=== PATIENT | female | born 1980 | race Caucasian/White ===

== ENCOUNTER 2021-10-06 11:12 | Outpatient (CLI) | payer OTHER, SELFPAY ==
[2021-10-06 14:30] LABS: Fetal Fibronectin* Negative (Negative)
[2021-10-11 12:18] LABS: Rapid Plasma Reagin (RPR) Non Reactive (Non Reactive)
== END 2021-10-06 11:13 | disposition home or self-care (01) ==
PROVIDERS: Visit Provider Advanced Practice Midwife
DX: O09.212 Supervision of pregnancy with history of pre-term labor, second trimester (principal); Z3A.26 26 weeks gestation of pregnancy
CPT/HCPCS: 84112; 86592

== ENCOUNTER 2021-11-08 09:41 | Outpatient (CLI) | payer OTHER, SELFPAY ==
--- OUTSIDE RECORDS SUMMARY | 2021-11-08 09:44 | XMS_ITS | Encounter Summary ---
:1980 Author Organization [facility] Address [facility] [place] [address] Care Team Providers Name Role Phone Bebeto Vargas MD Primary Care Provider Unavailable Encounter Details Date Type Department Care Team Description 08/22/2021 Travel Social History Tobacco Use Types Packs/Day Years Used Date Never Smoker Alcohol Use Standard Drinks/Week Comments No 0 (1 standard drink = 0.6 oz pure alcoho l) Sex Assigned at Date Recorded Not on file COVID-19 Exposure Response Date Recorded In the last 10 days, have you been in contact with No / Unsu re 08/22/2021 8:00 AM CDT someone who was confirmed or suspected to have Coronavirus/COVID-19? documented as of this encounter Plan of Treatment Upcoming Encounters Date Type Specialty Care Team Description 12/06/2021 Appointment Radiology. Sadie France MD [address] [place], [place] [id number] (Wo rk) 12/06/2021 Office Visit Maternal and Medicine Sa thais France MD [address] [place], [place] [phone] (Wo rk) documented as of this encounter Visit Diagnoses Not on filedocumented in this encounter Care Teams Field Tax Auditor Relationship Specialty Start Date End Date Bebeto Vargas MD PCP - General 03/09/08 documented as of this encounter
--- OUTSIDE RECORDS SUMMARY | 2021-11-08 09:44 | XMS_ITS | Encounter Summary ---
:1980 Author Organization [facility] Address [address] [place] [address]. [place] [address] Care Team Providers Name Role Phone Bebeto Vargas MD Primary Care Provider Unavailable Encounter Details Date Type Department Care Team Description 10/09/[address] [facility] Scan, MATERNAL Health Info Mgmt Non-Provider MEDICINE CE NTER Srvcs PROVIDER SERVICE [address] [place] [address] [place] [address] [facility] [phone] [facility] Social History Tobacco Use Types Packs/Day Years Used Date Never Smoker Alcohol Use Standard Drinks/Week Comments No 0 (1 standard drink = 0.6 oz pure alcoho l) Sex Assigned at Date Recorded Not on file documented as of this encounter Plan of Treatment Upcoming Encounters Date Type Specialty Care Team Description 12/06/2021 Appointment Radiology. Sadie France MD [address] [place], [place] [address] (Wo rk) 12/06/2021 Office Visit Maternal and Medicine Sa thais France MD [address] [place], [place] [id number] (Wo rk) documented as of this encounter Visit Diagnoses Not on filedocumented in this encounter Care Teams Senior Analyst Developer Relationship Specialty Start Date End Date Bebeto Vargas MD PCP - General 03/09/08 documented as of this encounter
--- OUTSIDE RECORDS SUMMARY | 2021-11-08 09:44 | XMS_ITS | Clinical Summary ---
:1980 Author Organization [facility] Address [address] [place] [address] Care Team Providers Name Role Phone Bebeto Vargas MD Primary Care Provider Unavailable Allergies Active Allergy Reactions Severity Noted Date Comments Gluten Meal Other (See Comments) 11/10/2018 Causes bloating Lac Bovis Other (See Comments), Nausea and 11/11/19 19 Mouth sores Vomiting Medications Medication Sig Dispensed Refills Start Date End Date Status PENTASA 500 MG OR 2 tabs 4 times a 0 01/15/2008 Active CPCRIndications: day Crohns disease VITAMIN TABS ONE DAILY 3 MONTHS 1 01/15/2008 Active OR VITAMIN B-12 1000 MCG 0 01/15/2008 Active OR TABSIndications: Status post small bowel resection FOLIC ACID 1 MG OR ONE DAILY 3 MONTHS 1 01/15/2008 Active TABS ZANTAC 150 MG OR ONE TABLET TWICE 60 1 02/12/2008 Active TABSIndications: DAILY Heartburn Additional Information Patient not taking. Reported on 08/22/2021 syringe 22G X 1-1/2 3 ML MISC FOR USE WITH VITAMIN B12 0 01/18/2021 Active ONCE A WEEK montelukast (SINGULAIR) 10 MG Take 1 tablet by mouth At 0 05/06/2020 Active tablet Bedtime Active Problems Problem Noted Date CARDIOVASCULAR SCREENING; LDL GOAL LESS THAN 160 01/29 Other threatened labor, antepartum 02/25/2008 Crohns disease 01/15/2008 Status post small bowel resection 01/15/2008 High-risk 01/15/2008 Overview: (Problem list name updated by automated process. Provider to review and confirm.) Fourth degree perineal laceration 01/15/2008 Estimated Date of Delivery Comments Yes 01/12/2022 Based on last menstr ual period of 04/07/2021 Resolved Problems Problem Noted Date Resolved Date Encounter for supervision of other normal 01/15/20 08 01/15/2008 Overview: Diagnosis updated by automated process. Provider to review and confirm. Normal Routine History And Physical - 03/08/2014 Overview: Created by Conversion Encounters Date Type Specialty Care Team Description 11/03/2021 Office Visit Maternal and Non-Fv Crohn's disease with Medicine Credentialed complication, Provider, unspecified Radiology gastrointestinal tract Sadie France location (H ) (Primary MD Mimi Dx) 11/03/2021 Hospital Encounter Radiology. Non-Fv related Credentialed condition Provider, Radiology Sadie France MD 11/03/2021 Travel 10/13/2021 Transcribe Orders Maternal and Wanda Aldridge RN Pregn jesus related Medicine condition (Pr imary Dx) 10/09/2021 Medical Scan, Non-Provider MATERNAL Correspondence [facility] PROVIDER SERVIC E REQUEST- OUTPAT [facility] 08/22/2021 Office Visit Maternal and Iliana Perez, r elated condition, antepartum (Primary Dx); Medicine CNM Choroid plexus cyst of fetus affecting c are of mother, antepartum, not applicable or unspecified fetus; Magdalena Garcia MD Multigravida of advanced maternal age in second trimester 08/22/2021 Hospital Encounter Radiology. Abraham Elder iseastrav; MD Raymond Status post small bowel resection; Iliana Diaz High-risk pr egnancy in second trimester MD Radha Card Lisa, MD 08/22/2021 Travel 08/15/2021 PRE VISIT Maternal and Nazanin Moran, RN Ultrasoun d (L2- AMA, Medicine Crohn's, B12 deficiency, Cov id in ); Con sult (AMA, Crohn's, B12 deficiency, Cov id in ) from Last 3 Months Immunizations Name Administration Dates Next Due Flu, Unspecified 02/14/2008 HepA, Unspecified 06/29/2010, 05/13/2007 Influenza Vaccine IM > 6 months Valent IIV4 01/25/2014, 12/30 (Alfuria,Fluzone) Tdap (Adacel,Boostrix) 04/29/2013, 05/13/2007 Family History Medical History Relation Comments Asthma Brother 2 Asthma Brother 3 Diabetes Maternal Grandmother ? type 2 Hyperlipidemia Maternal Grandmother Hypertension Maternal Grandmother Lipids Maternal Grandmother Asthma Mother Alzheimer Disease Paternal Grandmother Arthritis Paternal Grandmother Asthma Sister 2 Asthma Sister 3 Relation Status Comments Brother 1 Alive 2 Brother 2 Brother 3 Brother 4 Alive Father Alive Maternal Grandfather Maternal Grandmother Alive Mother Alive Paternal Grandfather Paternal Grandmother Sister 1 Alive 1 Sister 2 Sister 3 Sister 4 Alive Son Alive Social History Tobacco Use Types Packs/Day Years Used Date Never Smoker Alcohol Use Standard Drinks/Week Comments No 0 (1 standard drink = 0.6 oz pure alcoho l) Estimated Date of Delivery Comments Yes 01/12/2022 Based on last menstr ual period of 04/07/2021 Sex Assigned at Date Recorded Not on file COVID-19 Exposure Response Date Recorded In the last 10 days, have you been in contact with No / Unsu re 11/03/2021 9:34 AM CDT someone who was confirmed or suspected to have Coronavirus/COVID-19? 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 Sadie France MD [address] [place] [address] (Wo rk) 12/06/2021 Office Visit Maternal and Medicine Sa thais France MD [address] [place] [address] (Wo rk) Health Maintenance Due Date Last Done Comments ADVANCE CARE PLANNING 1980 ANNUAL REVIEW OF HM ORDERS 1980 PREVENTIVE CARE VISIT 1980 PAP 01/25/2017 01/25/2014, 11/07/2012, 06/29/2010 PHQ-2 (once per calendar 04/01/2021 year) COVID-19 Vaccine (5 - 05/15/2021 01/12/2021, 04/19/2020, Booster) 03/29/2020, Additional history exists MATERNAL SCREENING 07/21/2021 OBGCT (OB) 09/22/2021 02/12/2008 REPEAT ANTIBODY SCREEN (OB) 10/20/2021 INFLUENZA VACCINE (#1) 2021 01/12/2021, 01/12/2021, 12/15/2019, Additional history exists DTAP/TDAP/TD IMMUNIZATION 04/29/2023 04/29/2013, 05/13/2007 , (8 - Td or Tdap) 09/22/1997, Additional history exists IPV IMMUNIZATION Completed 07/12/1987, 10/09/1983, 1982, Additional history exists HEPATITIS B IMMUNIZATION Completed 11/02/1998, 10/20/1997, 09/22/1997 HIV SCREENING Completed 11/07/2012 HEPATITIS C SCREENING Completed 12/16/2012, 11/07/2012 MENINGITIS IMMUNIZATION Aged Out No longe r eligible based on patient 's age to complete this topic Pneumococcal Vaccine: Aged Out No longer eligible Pediatrics (0 to 5 Years) based on patient's age and At-Risk Patients (6 to to co mplete this topic 64 Years) Procedures Procedure Name Priority Date/Time Associated Comments Diagnosis [facility] Routine 11/03/2021 9:59 AM rela onelia Results for this SINGLE F/U CDT condition procedure are i n the results section. [facility] Routine 08/22/2021 8:48 AM Crohns d isease Results for this SINGLE CDT Status post small procedure are in bowel resection the results High-risk section. in second trimester from Last 3 Months Results [facility] Comprehensive Single F/U (11/03/2021 9:59 AM CDT) Anatomical Region Laterality Modality Ultrasound Specimen (Source) Anatomical Collection Method Collection Time Re ceived Time Location / / Volume Laterality 11/03/2021 9:36 AM CDT Impressions 11/03/2021 10:41 AM CDT IMPRESSION 1) Alfonso intrauterine at 3 0 & 0/7 weeks gestational age. 2) None of the anomalies commonly detect ed by ultrasound were evident in the limited anatomic survey as described above, anatomy limited by gestational age and lie. 3) Growth parameters and estimated weight were consistent with established dates. 4) The amniotic fluid volume appeared no rmal. Narrative 11/03/2021 10:41 AM CDT Comp Follow Up Pat. Name: ARIANA GOMEZ Study Date: 11/03/2021 9:36am Pat. NO: [id number] Referring ??: ROBI PEREZ Site: [facility] Hose Inspector And Patcher: Monique Wilkerson RDMS : 1980 Age: 41 INDICATION Advanced Maternal Age. Crohn's Disease. B12 deficiency. METHOD Transabdominal ultrasound examination. V iew: Sufficient Alfonso . Number of fetuses: 1 DATING ? Date ?Details ?Gest. age ?RACHEL LMP ?04/07/2021 ? 30 w + 0 d ? 01/12/2022 Prior assessment ? 3/ 10/2021 ?GA: 8 w + 4 d ? 30 w + 0 d ? 01/12/2022 U/S ? 11/03/2021 ?based upon AC, BPD, Femur, HC ? 30 w + 3 d ? 01/09/2022 Assigned dating ?Dating performed on 08/22/2021, based on the LMP ?30 w + 0 d ? 01/12/2022 GENERAL EVALUATION Cardiac activity present. FHR 157 bpm. movements present. Presentation cephalic. Placenta Anterior, No Previa, > 2 cm fro m internal os. Umbilical cord 3 vessel cord. Amniotic fluid Amount of AF: normal. MVP 7.8 cm. BIOMETRY Main Biometry: BPD ?74.0 ?mm ? 29w 5d ?Hadlock OFD ?102.3 ?mm ? 30w 1d ? Nicolaides HC ?282.5 ?mm ?31w 0d ?Hadlock Cerebellum tr ?39.4 ? mm ?33w 3d ?Nicolaides AC ?263.9 ?mm ?30w 4d ?61% ?Hadlock Femur ?58.2 ? mm ?30w 3d ?Hadlock Weight Calculation: EFW ? 1,579 ?g ? 54% ?Hadlock EFW (lb,oz) ? 3 lb 8 ?oz EFW by ?Hadlock ([id number]) Head / Face / Neck Biometry: Sub Prior ? 7.0 ? mm CM ?6.5 ? mm ANATOMY The following structures appear normal: Head / Neck ? Cranium. Head size. Head shape. Lateral ventricles. Midline falx. Cavum septi pellucidi. Cerebellum. Cisterna magna. Thalami. Face ? Lips. Profile. Nose. Heart / Thorax ?4-chamber view. RVOT view. LVOT view. 2-mgvszm-yabwblj view. ? Diaphragm. Abdomen ? Stomach. Kidneys. Bladder. Spine ?Cervical spine. Thoracic spine. Lumbar spine. Sacral spine. Gender: female. MATERNAL STRUCTURES Cervix ?Visualized ? Appearance: Appears Closed ? Approach - Transabdominal: Cervical length 48.8 mm Right Ovary ?Not examined Left Ovary ?Not examined RECOMMENDATION Thank-you for referring your patient to assess growth. I discussed the findings on today's ultrasound with the patient. Follow-up is scheduled in 4-6 weeks to yazmin hatfieldss growth due maternal Crohn's disease. She is not currently taking any medication for her Crohn's disease. She will do this with our [facility] group given the closer location to her home. Return to primary provider for continued care. If you have questions regarding today's evaluation or if we can be of further service, please contact the [facility]. anomalies may be present but not detected Procedure Note Sadie France MD - 11/03/2021Fo rmatting of this note might be different from the original. Comp Follow Up Pat. Name:Munira GOMEZ Date:07/2021 9:36am Pat. NO: [id number] MD:ILIANA PEREZ [facility] [place] :1980Age:41 INDICATION Advanced Maternal Age. Crohn's Disease. B12 deficiency. METHOD Transabdominal ultrasound examination. V iew: Sufficient Alfonso . Number of fetuses: 1 DATING Date Details Gest. age RACHEL LMP 04/07/2021 30 w + 0 d 01/12/2022 Prior assessment 06/06/2021 GA: 8 w + 4 d 30 w + 0 d 01/12/2022 U/S 11/03/2021 based upon AC, BPD, Femur, HC 30 w + 3 d 01/09/2022 Assigned dating Dating performed on 07/31, based on the LMP 30 w + 0 d 01/12/2022 GENERAL EVALUATION Cardiac activity present. FHR 157 bpm. movements present. Presentation cephalic. Placenta Anterior, No Previa, > 2 cm fro m internal os. Umbilical cord 3 vessel cord. Amniotic fluid Amount of AF: normal. MVP 7.8 cm. BIOMETRY Main Biometry: BPD 74.0 mm 29w 5d Hadlock OFD 102.3 mm 30w 1d Nicolaides HC 282.5 mm 31w 0d Hadlock Cerebellum tr 39.4 mm 33w 3d Nicolaides AC 263.9 mm 30w 4d 61% Hadlock Femur 58.2 mm 30w 3d Hadlock Weight Calculation: EFW 1,579 g 54% Hadlock EFW (lb,oz) 3 lb 8 oz EFW by Hadlock ([id number]) Head / Face / Neck Biometry: Sub Prior 7.0 mm CM 6.5 mm ANATOMY The following structures appear normal: Head / Neck Cranium. Head size. Head sha pe. Lateral ventricles. Midline falx. Cavum septi pellucidi. Cerebellum. Cisterna magna. Thalami. Face Lips. Profile. Nose. Heart / Thorax 4-chamber view. RVOT view . LVOT view. 9-pngutm-gxmynzk view. Diaphragm. Abdomen Stomach. Kidneys. Bladder. Spine Cervical spine. Thoracic spine. Jyoti mbar spine. Sacral spine. Gender: female. MATERNAL STRUCTURES Cervix Visualized Appearance: Appears Closed Approach - Transabdominal: Cervical kevin gth 48.8 mm Right Ovary Not examined Left Ovary Not examined RECOMMENDATION Thank-you for referring your patient to assess growth. I discussed the findings on today's ultrasound with the patient. Follow-up is scheduled in 4-6 weeks to r liuss growth due maternal Crohn's disease. She is not currently taking any medication for her Crohn's disease. She will do this with our [facility] group given the closer location to her home. Return to primary provider for continued care. If you have questions regarding today's evaluation or if we can be of further service, please contact the [facility]. anomalies may be present but not detected IMPRESSION 1) Alfonso intrauterine at 3 0 & 0/7 weeks gestational age. 2) None of the anomalies commonly detect ed by ultrasound were evident in the limited anatomic survey as described above, anatomy limited by gestational age and lie. 3) Growth parameters and estimated weight were consistent with established dates. 4) The amniotic fluid volume appeared no rmal. Radiology Non-Fv Credentialed Provider [facility] US MARIAH TRIMBLE [facility] Comprehensive Single (08/22/2021 8:48 AM CDT) Anatomical Region Laterality Modality Ultrasound Specimen (Source) Anatomical Collection Method Collection Time Re ceived Time Location / / Volume Laterality 08/22/2021 8:04 AM CDT Impressions 08/22/2021 9:33 AM CDT IMPRESSION 1) Aflonso intrauterine at 1 9w 4d gestational age. 2) There is a small choroid plexus cyst. Otherwise, none of the anomalies commonly detected by ultrasound were evident in the detailed anatomic survey as described above. 3) Growth parameters and estimated weight were consistent with established dates. 4) The amniotic fluid volume appeared no rmal. 5) Normal activity for gestational age. 6) On transabdominal imaging the cervix appears long and closed. Narrative 08/22/2021 9:33 AM CDT Comprehensive Pat. Name: ARIANA GOMEZ Study Date: 08/22/2021 8:04am Pat. NO: [id number] Referring ??: ROBI PEREZ Site: [facility] Hose Inspector And Patcher: Nubia Ospina RD MS : 1980 Age: 41 INDICATION Advanced Maternal Age. Chrons. B12 defic iency. METHOD Transabdominal ultrasound examination. V iew: Sufficient Alfonso . Number of fetuses: 1 DATING ? Date ?Details ?Gest. age ?RACHEL LMP ?04/07/2021 ? 19 w + 4 d ? 01/12/2022 Prior assessment ? 06/06/2021 ?GA: 8 w + 4 d ? 19 w + 4 d ? 01/12/2022 U/S ? 08/22/2021 ? based upon AC, BPD, Femur, HC ? 19 w + 2 d ? 01/14/2022 Assigned dating ?Dating performed on 08/22/2021, based on the LMP ?19 w + 4 d ? 01/12/2022 GENERAL EVALUATION Cardiac activity present. FHR 155 bpm. movements present. Presentation cephalic. Placenta Anterior, anterior, low lying. Umbilical cord 3 vessel cord. Amniotic fluid normal MVP, MVP 5.5 cm. BIOMETRY Main Biometry: BPD ?42.8 ?mm ? 19w 0d ?Hadarchie OFD ?60.1 ?mm ? 19w 4d ?Nicolaides HC ?165.8 ?mm ?19w 2d ?Hadlock Cerebellum tr ?20.7 ? mm ?19w 5d ?Nicolaides AC ?142.5 ?mm ?19w 4d ?46% ?Hadlock Femur ?30.3 ? mm ?19w 3d ?Hadlock Humerus ?30.2 ?mm ? 20w 0d ?Tamika Weight Calculation: EFW ? 294 ? g ? 38% ?Hadlock EFW (lb,oz) ? 0 lb 10 ? oz EFW by ?Hadlock ([id number]-FL) Head / Face / Neck Biometry: Sub Prior ? 5.8 ? mm CM ?3.5 ? mm Nasal bone ? 5.2 ? mm Nuchal fold ? 5.0 ? mm ANATOMY Head / Neck ? Left choroid plexus: cyst The following structures appear normal: Head / Neck ? Cranium. Head size. Head shape. Lateral ventricles. Midline falx. Cavum septi pellucidi. Cerebellum. Cisterna magna. Parenchyma. Thalami. ? Vermis. ? Neck. Nuchal fold. Face ? Lips. Profile. Nose. Maxilla. Mandible. Orbits. Lens. Heart / Thorax ?4-chamber view. RVOT view. LVOT view. Situs. Aortic arch view. Bicaval view. Ductal arch view. Superior vena cava. Inferior vena cava. 3-vessel ? view. 2-wlacqt-jrwxegh view. Cardiac position. Cardiac size. Cardiac rhythm. ? Right lung. Left lung. Diaphragm. Abdomen ? Abdominal wall. Cord insertion. Stomach. Kidneys. Bladder. Liver. Bowel. Genitals. Spine ?Cervical spine. Thoracic spine. Lumbar spine. Sacral spine. Extremities / Skeleton ?Rig ht arm. Right hand. Left arm. Left hand. Right leg. Right foot. Left leg. Left foot. Gender: female. MATERNAL STRUCTURES Cervix ?Visualized ? Appearance: Appears Closed ? Cervical length 41.0 mm Right Ovary ?Visualized Left Ovary ?Visualized RECOMMENDATION Thank-you for referring your patient for a comprehensive ultrasound. She had low risk first trimester screen. I discussed the findings on today's ultr asound with the patient. I reviewed the limitations of ultrasound both in detecting aneuploidy and structural abnormalities. We discussed the finding of the unilateral choroid plexus cyst. We discussed that choroid plexus cysts are seen in normal pregnancies as an isolated finding with no clinically significant impact. They can be unilater al or bilateral and result from the trapping of CSF within the choroid plexus. We reviewed that in the setting of her otherwise structurally normal ultrasound today thi s is likely to be a normal variant and requires no additional follow-up. We also reviewed that this finding does not impact structural brain development or function. The placenta today is 1.3 cm from the ce rvical os, which is low lying. As progresses this finding is very likely to resolve prior to delivery. A follow up ultrasound is recommended in your office in the third trimester to reevaluate growth in the setting of maternal COVID infection in . Ariana also had a consultation today. Please see [facility] for full documentation of that encounter. Return to primary provider for continued care. If you have questions regarding today's evaluation or if we can be of further service, please contact the [facility]. anomalies may be present but not detected Procedure Note Magdalena Garcia MD - 08/22/2021 Comprehensive Pat. Name:ARIANA GOMEZSowmya Date: 8:04am Pat. NO: [id number] MD:ILIANA PEREZ [facility]Nub[facility] RDMS :1980Age:41 INDICATION Advanced Maternal Age. Chrons. B12 defic iency. METHOD Transabdominal ultrasound examination. V iew: Sufficient Alfonso . Number of fetuses: 1 DATING Date Details Gest. age RACHEL LMP 04/07/2021 19 w + 4 d 01/12/2022 Prior assessment 06/06/2021 GA: 8 w + 4 d 19 w + 4 d 01/12/2022 U/S 08/22/2021 based upon AC, BPD, Femur, HC 19 w + 2 d 01/14/2022 Assigned dating Dating performed on 07/31, based on the LMP 19 w + 4 d 01/12/2022 GENERAL EVALUATION Cardiac activity present. FHR 155 bpm. movements present. Presentation cephalic. Placenta Anterior, anterior, low lying. Umbilical cord 3 vessel cord. Amniotic fluid normal MVP, MVP 5.5 cm. BIOMETRY Main Biometry: BPD 42.8 mm 19w 0d Hadlock OFD 60.1 mm 19w 4d Nicolaides HC 165.8 mm 19w 2d Hadlock Cerebellum tr 20.7 mm 19w 5d Nicolaides AC 142.5 mm 19w 4d 46% Hadlock Femur 30.3 mm 19w 3d Hadlock Humerus 30.2 mm 20w 0d Tamika Weight Calculation: EFW 294 g 38% Hadlock EFW (lb,oz) 0 lb 10 oz EFW by Hadlock ([id number]-FL) Head / Face / Neck Biometry: Sub Prior 5.8 mm CM 3.5 mm Nasal bone 5.2 mm Nuchal fold 5.0 mm ANATOMY Head / Neck Left choroid plexus: cyst The following structures appear normal: Head / Neck Cranium. Head size. Head sha pe. Lateral ventricles. Midline falx. Cavum septi pellucidi. Cerebellum. Cisterna magna. Parenchyma. Thalami. Vermis. Neck. Nuchal fold. Face Lips. Profile. Nose. Maxilla. Jes ble. Orbits. Lens. Heart / Thorax 4-chamber view. RVOT view . LVOT view. Situs. Aortic arch view. Bicaval view. Ductal arch view. Superior vena cava. Inferior vena cava. 3-vessel view. 0-mjlrtm-yrwjctd view. Cardiac po sition. Cardiac size. Cardiac rhythm. Right lung. Left lung. Diaphragm. Abdomen Abdominal wall. Cord insertion. Stomach. Kidneys. Bladder. Liver. Bowel. Genitals. Spine Cervical spine. Thoracic spine. Jyoti mbar spine. Sacral spine. Extremities / Skeleton Right arm. Right hand. Left arm. Left hand. Right leg. Right foot. Left leg. Left foot. Gender: female. MATERNAL STRUCTURES Cervix Visualized Appearance: Appears Closed Cervical length 41.0 mm Right Ovary Visualized Left Ovary Visualized RECOMMENDATION Thank-you for referring your patient for a comprehensive ultrasound. She had low risk first trimester screen. I discussed the findings on today's ultr asound with the patient. I reviewed the limitations of ultrasound both in detecting aneuploidy and structural abnormalities. We discussed the finding of the unilateral choroid plexus cyst. We discussed that choroid plexus cysts are seen in normal pregnancies as an isolated finding with no clinically significant impact. They can be unilater al or bilateral and result from the trapping of CSF within the choroid plexus. We reviewed that in the setting of her otherwise structurally normal ultrasound today thi s is likely to be a normal variant and requires no additional follow-up. We also reviewed that this finding does not impact structural brain development or function. The placenta today is 1.3 cm from the ce rvical os, which is low lying. As progresses this finding is very likely to resolve prior to delivery. A follow up ultrasound is recommended in your office in the third trimester to reevaluate growth in the setting of maternal COVID infection in . Ariana also had a consultation today. Please see [facility] for full documentation of that encounter. Return to primary provider for continued care. If you have questions regarding today's evaluation or if we can be of further service, please contact the [facility]. anomalies may be present but not detected IMPRESSION 1) Alfonso intrauterine at 1 9w 4d gestational age. 2) There is a small choroid plexus cyst. Otherwise, none of the anomalies commonly detected by ultrasound were evident in the detailed anatomic survey as described above. 3) Growth parameters and estimated weight were consistent with established dates. 4) The amniotic fluid volume appeared no rmal. 5) Normal activity for gestational age. 6) On transabdominal imaging the cervix appears long and closed. Abraham Elder MD [facility] ORDERABLES from Last 3 Months Insurance Payer Benefit Plan / Subscriber ID Effective Phone Address T e Group Dates [employer] [id number] 2021-[facility] [phone] [address]PO PREFERREDONE nt [id number] [place] [address] Care Teams Nut Culler Relationship Specialty Start Date End Date Bebeto Vargas MD PCP - General 03/09/08
--- OUTSIDE RECORDS SUMMARY | 2021-11-08 09:44 | XMS_ITS | Encounter Summary ---
:1980 Author Organization [facility] Address [facility] [place] [address] Care Team Providers Name Role Phone Bebeto Vargas MD Primary Care Provider Unavailable Encounter Details Date Type Department Care Team Description 11/03/2021 Travel Social History Tobacco Use Types Packs/Day [...] [address] [place], [place] [id number] (Wo rk) 12/06/2021 Office Visit Maternal and Medicine Sa thais France MD [address] [place], [place] [id number] (Wo rk) documented as of this encounter Visit Diagnoses Not on filedocumented in this encounter Care Teams Pipe Bowls Paint Trimmer Relationship Specialty Start Date End Date Bebeto Vargas MD PCP - General 03/09/08 documented as of this encounter
--- OUTSIDE RECORDS SUMMARY | 2021-11-08 09:44 | XMS_ITS | Encounter Summary ---
:1980 Author Organization [place] Address [address] [facility] [place] [address] Care Team Providers Name Role Phone Bebeto Vargas MD Primary Care Provider Unavailable Reason for Referral Diagnostic Imaging Ultrasound (Routine) - Pending Review Specialty Diagnoses / Procedures Referred By Contact Refer red To Contact Diagnoses Crohn's disease with complication, unspecified gastrointestinal tract location (H) Sadie France, Procedures [facility] Comprehensive Single F/U [address] [place], [place] [address] Referral ID Status Reason Start Date Expiration Date Visits V isits Requested Authorized [id number] Pending 11/03/2021 11/03/2022 1 1 Review Reason for Visit Reason Comments Ultrasound [id number], Covid in Encounter Details Date Type Department Care Team Description 11/03/2021 Office Visit [facility] Non-Fv Credent ialed Provider, Radiology Crohn's disease with Maternal Sadie France MD [address] [place] [address] complication, Medicine Center unspecified [place] gastrointestinal tract [address] location (H) ([address] Dx) [place] [address] Social History Tobacco Use Types Packs/Day Years [...] have Coronavirus/COVID-19? documented as of this encounter Progress Notes Sadie France MD - 11/03/2021 10:00 AM CDT Please see Imaging tab under Chart Review for details of today's visit. Sadie France MD PhD Maternal Medicine documented in this encounter Plan of Treatment Upcoming Encounters Date Type Specialty Care Team Description 12/06/2021 Appointment Radiology. Sadie France MD [address] [place], [place] [phone] (Wo rk) 12/06/2021 Office Visit Maternal and Medicine Sa thais France MD [address] [place], [place] [phone] (Wo rk) Scheduled Orders Name Type Priority Associated Diagnoses Order S chedule MFM US Comprehensive Imaging Routine Crohn's disease with Expected: Single F/U complication, unspecified gastrointestinal tract (Appr oximate), location (H) Expires: 11/03/2022 documented as of this encounter Visit Diagnoses Diagnosis Crohn's disease with complication, unspe cified gastrointestinal tract location (H) - Primary documented in this encounter Care Teams Service Crew Leader Relationship Specialty Start Date End Date Bebeto Vargas MD PCP - General 03/09/08 documented as of this encounter
--- OUTSIDE RECORDS SUMMARY | 2021-11-08 09:44 | XMS_ITS | Encounter Summary ---
:1980 Author Organization [place] Address [facility] [place] [address] Care Team Providers Name Role Phone Bebeto Vargas MD Primary Care Provider Unavailable Reason for Referral Diagnostic Imaging Ultrasound (Routine) - Pending Review Specialty Diagnoses / Procedures Referred By Contact Refer red To Contact Diagnoses related condition Rh Maternal Med Procedures [facility] US Comprehensive Single F/U [address] [place] [address] Referral ID Status Reason Start Date Expiration Date Visits V isits Requested Authorized [id number] Pending 10/13/2021 10/13/2022 1 1 Review Reason for Visit Diagnostic Imaging Ultrasound (Routine) - Pending Review Specialty Diagnoses / Procedures Referred By Contact Refer red To Contact Diagnoses related condition Rh Maternal Med Procedures [facility] US Comprehensive Single F/U [address] [place] [address] Referral ID Status Reason Start Date Expiration Date Visits V isits Requested Authorized [id number] Pending 10/13/2021 10/13/2022 1 1 Review Encounter Details Date Type Department Care Team Description 11/03/2021 [facility] Non-Fv Credentialed Pro vider, Radiology related Encounter Maternal Sadie France MD [address] [facility] [address] [place], [place] [address] [facility] [address] [place] [address] Social History Tobacco Use Types [...] have Coronavirus/COVID-19? documented as of this encounter Medications at Time of Discharge Medication Sig Dispensed Refills Start Date End Date FOLIC ACID 1 MG OR TABS ONE DAILY 3 MONTHS 1 01/15/2008 montelukast (SINGULAIR) 10 Take 1 tablet by 0 07/2020 MG tablet mouth At Bedtime PENTASA 500 MG OR 2 tabs 4 times a day 0 01/15/20 CPCRIndications: Crohns disease VITAMIN TABS OR ONE DAILY 3 MONTHS 1 01/15/2008 syringe 22G X 1-1/2 3 ML FOR USE WITH VITAMIN 0 01/18/2021 MISC B12 ONCE A WEEK VITAMIN B-12 1000 MCG OR 0 01/15/2008 TABSIndications: Status post small bowel resection ZANTAC 150 MG OR ONE TABLET TWICE 60 1 02/12/2008 TABSIndications: Heartburn DAILY documented as of this encounter Plan of Treatment Upcoming Encounters Date Type Specialty Care Team Description 12/06/2021 Appointment Radiology. Sadie France MD [address] [place] [address] (Wo rk) 12/06/2021 Office Visit Maternal and Medicine Sa thais France MD [address] [place] [address] (Wo rk) documented as of this encounter Procedures Procedure Name Priority Date/Time Associated Comments Diagnosis MFM US COMPREHENSIVE Routine 11/03/2021 9:59 AM rela onelia Results for this SINGLE F/U CDT condition procedure are i n the results section. documented in this encounter Results MFM US Comprehensive Single F/U (11/03/2021 9:59 AM CDT) [...] GOMEZ Study Date: 11/03/2021 9:36am Pat. NO: [id number] Referring ??: ROBI AMOS Site: [facility] Graduate Assistant Athletic Trainer: Monique Wilkerson RDMS : 1980 Age: 41 [...] 3 lb 8 ?oz EFW by ?Hadlock (USA-FE-AA-FL) Head / Face / Neck Biometry: Manager In Training ? 7.0 ? mm CM ?6.5 ? mm ANATOMY The following structures appear normal: Head / Neck ? Cranium. Head size. Head shape. Lateral ventricles. Midline falx. Cavum septi pellucidi. Cerebellum. Cisterna magna. Thalami. Face ? Lips. Profile. Nose. Heart / Thorax ?4-chamber view. RVOT view. LVOT view. 3-hqetbn-axlodeu view. ? Diaphragm. Abdomen ? Stomach. Kidneys. [...] is scheduled in 4-6 weeks to yazmin doran growth due maternal Crohn's disease. She is not currently taking any medication for her Crohn's disease. She will do this with our [facility] group given the closer location to [...] Pat. Name:Munira GOMEZ Date:07/2021 9:36am Pat. NO: [id number] MD:ILIANA AMOS [facility]LE[facility] [place] :1980Age:41 INDICATION Advanced Maternal [...] 3 lb 8 oz EFW by Hadlock ([id number]) Head / Face / Neck Biometry: Manager In Training 7.0 mm CM 6.5 mm ANATOMY The following structures appear normal: Head / Neck Cranium. Head size. Head sha pe. Lateral ventricles. Midline falx. Cavum septi pellucidi. Cerebellum. Cisterna magna. Thalami. Face Lips. Profile. Nose. Heart / Thorax 4-chamber view. RVOT view . LVOT view. 4-vhyvts-rpfsvhc view. Diaphragm. Abdomen Stomach. Kidneys. Bladder. Spine [...] disease. She will do this with our [facility] group given the closer location to [...] appeared no rmal. Radiology Non-Fv Credentialed Provider IMG [facility] US MARIAH TRIMBLE documented in this encounter Visit Diagnoses Diagnosis related condition Unspecified complication of , u nspecified as to episode of care documented in this encounter Care Teams Store Clerk Relationship Specialty Start Date End Date Bebeto Vargas MD PCP - General 03/09/08 documented as of this encounter
--- OUTSIDE RECORDS SUMMARY | 2021-11-08 09:45 | XMS_ITS | Encounter Summary ---
:1980 Author Organization [place] Address [address] [place] [address] Care Team Providers Name Role Phone Bebeto Vargas MD Primary Care Provider Unavailable Reason for Visit Reason Comments Abdominal Pain Encounter Details Date Type Department Care Team Description 06/29/2014 Emergency [facility] Provider, Historical Ex acerbation of Crohn's [facility] Emergency Joy m complications (H) [address] [place] [address] Social History Tobacco Use Types Packs/Day Years Used Date Never Smoker Alcohol Use Standard Drinks/Week Comments No 0 (1 standard drink = 0.6 oz pure alcoho l) Sex Assigned at Date Recorded Not on file documented as of this encounter Last Filed Vital Signs Vital Sign Reading Time Taken Comments Blood Pressure - - Pulse - - Temperature - - Respiratory Rate - - Oxygen Saturation - - Inhaled Oxygen Concentration - - Weight 49.9 kg (110 lb) 06/29/2014 4:10 AM CDT Height 157.5 cm (5' 2) 06/29/2014 4:10 AM CDT Body Mass Index 20.12 06/29/2014 4:10 AM CDT documented in this encounter Medications at Time of Discharge Medication Sig Dispensed Refills Start Date End Date FOLIC ACID 1 MG OR TABS ONE DAILY 3 MONTHS 1 01/15/2008 PENTASA 500 MG OR 2 tabs 4 times a day 0 01/15/20 08 CPCRIndications: Crohns disease VITAMIN TABS OR ONE DAILY 3 MONTHS 1 01/15/2008 VITAMIN B-12 1000 MCG OR 0 01/15/2008 TABSIndications: Status post small bowel resection ZANTAC 150 MG OR ONE TABLET TWICE 60 1 02/12/2008 TABSIndications: Heartburn DAILY documented as of this encounter Progress Notes Obed Mancera - 06/29/2014 5:24 AM CDT Pt states first dose of dilauded brought pain to 5, then went back up to 7. Second dose ordered by . documented in this encounter ED Notes Historical Provider - 06/29/2014 4:51 AM CDT History Chief Complaint Patient presents with ??? Abdominal Pain HPI 34-year-old female presents with abdominal pain. The patient has been having diffuse upper abdominalpain since early this morning. The pain apparently is intermittent, severe, nonradiating. She has been nauseated with no vomiting, no fever, no loose stool. Last bowel movement was on 1 day prior. She has a history of Crohn's disease with previous ileocecal resection. She is currently using mesalamine. Past Medical History Diagnosis Date ??? Crohn's disease ??? Allergic rhinitis ??? Vitamin D deficiency ??? Supraventricular tachycardia ??? Migraine ??? Lactase deficiency disease ??? Exercise-induced asthma ??? SVT (supraventricular tachycardia) 2013 Cardiac ablation in 2013. Past Surgical History Procedure Laterality Date ??? Pr appendectomy 2002 Description: Appendectomy; Recorded: 02/17/2009; ??? Pr resect small intest,singl resec/anas 2002 Description: Small Bowel Resection; Recorded: 02/17/2009; ??? Other surgical history 2012 Cardiac Ablation ??? Cardiac electrophysiology mapping and ablation 2013 HX SVT Family History Problem Relation Age of Onset ??? Asthma Mother ??? Asthma Sister ??? Asthma Brother ??? Hypertension Maternal Grandmother ??? Hyperlipidemia Maternal Grandmother History Substance Use Topics ??? Smoking status: Never Smoker ??? Smokeless tobacco: Never Used ??? Alcohol Use: 0.6 oz/week 1 Glasses of wine per week Review of Systems Constitutional: Negative for fever. Respiratory: Negative for shortness of breath. Cardiovascular: Negative for chest pain. Gastrointestinal: Positive for nausea and abdominal pain. Genitourinary: Negative for dysuria. Musculoskeletal: Negative for back pain and neck pain. Skin: Negative for rash. Neurological: Negative for headaches. Hematological: Negative for adenopathy. Psychiatric/Behavioral: Negative for confusion. Physical Exam BP 126/71 Pulse 73 Temp(Src) 97.8 ??F (36.6 ??C) (Oral) Resp 22 Ht 5' 2 (1.575 m) Wt 110 lb (49.896 kg) BMI 20.11 kg/m2 SpO2 100% LMP 06/28/2014 Physical Exam Nursing note and vitals reviewed. Constitutional: She is oriented to person, place, and time. She appears well- developed and well-nourished. She appears distressed. HENT: Head: Normocephalic and atraumatic. Eyes: Conjunctivae are normal. Neck: Neck supple. Cardiovascular: Normal rate and regular rhythm. No murmur heard. Pulmonary/Chest: Effort normal and breath sounds normal. No respiratory distress. She has no wheezes. Abdominal: Soft. She exhibits no distension and no mass. There is tenderness. There is guarding. Musculoskeletal: She exhibits no edema and no tenderness. Neurological: She is alert and oriented to person, place, and time. Skin: Skin is warm. No rash noted. She is not diaphoretic. Psychiatric: She has a normal mood and affect. ED Course Procedures MDM 34-year-old female was evaluated for abdominal pain. She was treated with Zofran, Dilaudid, IV fluid. CT imaging shows no evidence of significant pathology. There is large amount of fecal debris. She was sitting up in the improved symptomatically when reevaluated. She was started on prednisone for treatment of potential Crohn's flare. She was discharged in stable condition. Final Diagnoses Final diagnoses: Exacerbation of Crohn's disease, without complications Magdiel Clifford MD 07/07/148 documented in this encounter Plan of Treatment Upcoming Encounters Date Type Specialty Care Team Description 12/06/2021 Appointment Radiology. Sadie France MD [address] [place] [address] (Wo rk) 12/06/2021 Office Visit Maternal and Medicine Sa thais France MD [address] [place] [address] (Wo rk) documented as of this encounter Procedures Procedure Name Priority Date/Time Associated Diagnosis Comme nts CT ABDOMEN PELVIS W Routine 06/29/2014 5:47 AM Re sults for this CONTRAST CDT procedure are i n the results section. documented in this encounter Results CT Abdomen Pelvis w Contrast (06/29/2014 5:47 AM CDT) Anatomical Region Laterality Modality Abdomen/Pelvis, SUBRAD CT BODY, UMP CT ABDOMEN PELVIS, Computed Tomography RAD CT Specimen (Source) Anatomical Location Collection Method / Collectio n Time Received Time / Laterality Volume Impressions 06/29/2014 6:00 AM CDT CONCLUSION: 1. ??Previous ileocolic resection. 2. ??No evidence of obstruction. 3. ??No focal inflammatory change. 4. ??Large amount of intraluminal fecal debris in the colon. 5. ??Trace amount of free fluid in pelvi s. 6. ??IUD in uterus. Narrative 06/29/2014 6:[address] ABDOMEN PELVIS WO ORAL W IV CONTRAST 06/29/2014 5:47 AM ? INDICATION: Abdominal pain with history crohns and ileocecal resection. TECHNIQUE: CT abdomen and pelvis. Multip lanar reformation images (MPR). IV CONTRAST: Iohexol (Omni) 100 mL COMPARISON: None. FINDINGS: LUNG BASES: Unremarkable. ABDOMEN: The liver, spleen and pancreas unremarkable. Stomach partially filled with gastric contents. Gallbladder visualized. No adrenal nodule. Aorta normal in caliber. Symmetric renal enhancement bilaterally. Moderate amount of intraluminal fecal debris in the colon. PELVIS: Previous ileocolic resection. La rge amount of intraluminal fecal debris sigmoid colon. IUD in uterus. Trace free fluid dependent pelvis. No focal inflammatory change. MUSCULOSKELETAL: No acute osseous abnorm ality. Mild levoscoliosis. Procedure Note Russell Varghese - 09/03/2020Formatting o f this note might be different from the original. CT ABDOMEN PELVIS WO ORAL W IV CONTRAST 06/29/2014 5:47 AM INDICATION: Abdominal pain with history crohns and ileocecal resection. TECHNIQUE: CT abdomen and pelvis. Multip lanar reformation images (MPR). IV CONTRAST: Iohexol (Omni) 100 mL COMPARISON: None. FINDINGS: LUNG BASES: Unremarkable. ABDOMEN: The liver, spleen and pancreas unremarkable. Stomach partially filled with gastric contents. Gallbladder visualized. No adrenal nodule. Aorta normal in caliber. Symmetric renal enhancement bilaterally. Moderate amount of intraluminal fecal debris in the colon. PELVIS: Previous ileocolic resection. La rge amount of intraluminal fecal debris sigmoid colon. IUD in uterus. Trace free fluid dependent pelvis. No focal inflammatory change. MUSCULOSKELETAL: No acute osseous abnorm ality. Mild levoscoliosis. IMPRESSION: CONCLUSION: 1. Previous ileocolic resection. 2. No evidence of obstruction. 3. No focal inflammatory change. 4. Large amount of intraluminal fecal de bris in the colon. 5. Trace amount of free fluid in pelvis. 6. IUD in uterus. Historical Provider IMG CT ORDERABLES documented in this encounter Visit Diagnoses Diagnosis Exacerbation of Crohn's disease, without complications (H) documented in this encounter Care Teams Ski Patrol Relationship Specialty Start Date End Date Bebeto Vargas MD PCP - General 03/09/08 documented as of this encounter
--- OUTSIDE RECORDS SUMMARY | 2021-11-08 09:45 | XMS_ITS | Encounter Summary ---
:1980 Author Organization [place] Address [facility] [place] [address] Care Team Providers Name Role Phone Bebeto Vargas MD Primary Care Provider Unavailable Encounter Details Date Type Department Care Team Description 04/07/2019 Records - [facility] CONVERSION Provider, Historica l Social History Tobacco Use Types Packs/Day Years [...] [address] [place], [place] [phone] (Wo rk) 12/06/2021 Office Visit Maternal and Medicine Sa thais France MD [address] [place] [address] (Wo rk) documented as of this encounter Visit Diagnoses Not on filedocumented in this encounter Care Teams Video Game Technician Relationship Specialty Start Date End Date Bebeto Vargas MD PCP - General 03/09/08 documented as of this encounter
--- OUTSIDE RECORDS SUMMARY | 2021-11-08 09:45 | XMS_ITS | Encounter Summary ---
:1980 Author Organization [place] Address [facility] [place] [address] Care Team Providers Name Role Phone Bebeto Vargas MD Primary Care Provider Unavailable Encounter Details Date Type Department Care Team Description 03/26/2019 Records - [facility] CONVERSION Scan, Non-Provider Social History Tobacco Use Types Packs/Day Years [...] [address] [place], [place] [address] (Wo rk) 12/06/2021 Office Visit Maternal and Medicine Sa thais France MD [address] [place], [place] [address] (Wo rk) documented as of this encounter Visit Diagnoses Not on filedocumented in this encounter Care Teams Lead Electrician Relationship Specialty Start Date End Date Bebeto Vargas MD PCP - General 03/09/08 documented as of this encounter
--- OUTSIDE RECORDS SUMMARY | 2021-11-08 09:45 | XMS_ITS | Encounter Summary ---
:1980 Author Organization [place] Address [facility] [place] [address] Care Team Providers Name Role Phone Bebeto Vargas MD Primary Care Provider Unavailable Encounter Details Date Type Department Care Team Description 01/26/2014 Ambulatory - [facility] Charlotte Reynoso Screening [address] examination for [address] [place] [address] [place] [address] [place] [address] [place] [facility] [phone] Social History Tobacco Use Types Packs/Day Years [...] [address] [place], [place] [phone] (Wo rk) 12/06/2021 Office Visit Maternal and Medicine Sa thais France MD [address] [place], [place] [phone] (Wo rk) documented as of this encounter Visit Diagnoses Diagnosis Screening examination for venereal disea se documented in this encounter Care Teams Warranty Clerk Relationship Specialty Start Date End Date Bebeto Vargas MD PCP - General 03/09/08 documented as of this encounter
--- OUTSIDE RECORDS SUMMARY | 2021-11-08 09:45 | XMS_ITS | Encounter Summary ---
:1980 Author Organization [place] Address [facility] [place] [address] Care Team Providers Name Role Phone Bebeto Vargas MD Primary Care Provider Unavailable Reason for Referral Diagnostic Imaging Ultrasound (Routine) - Pending Review Specialty Diagnoses / Procedures Referred By Contact Refer red To Contact Diagnoses Crohn's disease (H) Status post small bowel resection High-risk in second trimester Abraham Elder MD Procedures [facility] Comprehensive Single [address] [place], [place] [address] Referral ID Status Reason Start Date Expiration Date Visits V isits Requested Authorized [id number] Pending 06/27/2021 06/27/2022 1 1 Review Reason for Visit Diagnostic Imaging Ultrasound (Routine) - Pending Review Specialty Diagnoses / Procedures Referred By Contact Refer red To Contact Diagnoses Crohn's disease (H) Status post small bowel resection High-risk in second trimester Abraham Elder MD Procedures [facility] US Comprehensive Single [address] [place], [place] [address] Referral ID Status Reason Start Date Expiration Date Visits V isits Requested Authorized [id number] Pending 06/27/2021 06/27/2022 1 1 Review Encounter Details Date Type Department Care Team Description 08/22/2021 Hospital Encounter [facility] Joseph Elder MD [address] [address] Crohns disease; Maternal Iliana Diaz MD [address] [address] Status post small bowel resection; Medicine Center Magdalena Garcia MD [address] [place] [address] High-risk in second trimester [place] [address] [place] [phone] Social History Tobacco Use Types Packs/Day Years [...] Appointment Radiology. Sadie France MD [address] [address] (Wo rk) 12/06/2021 Office Visit Maternal and Medicine Sa thais France MD [address] [place] [address] (Wo rk) documented as of this encounter Procedures Procedure Name Priority Date/Time Associated Comments Diagnosis MFM US COMPREHENSIVE Routine 08/22/2021 8:48 AM Crohns d isease Results for this SINGLE CDT Status post small procedure are in bowel resection the results High-risk section. in second trimester documented in this encounter Results MFM US Comprehensive Single (08/22/2021 8:48 AM CDT) Anatomical Region Laterality Modality Ultrasound Specimen (Source) Anatomical Collection Method Collection Time Re ceived Time Location / / Volume Laterality 08/22/2021 8:04 AM CDT Impressions 08/22/2021 9:33 AM CDT IMPRESSION 1) Alfonso intrauterine at 1 9w [...] GOMEZ Study Date: 08/22/2021 8:04am Pat. NO: [id number] Referring ??MD: ROBI AMOS Site: [facility] Oil Rag Washer: Nubia Ospina RD MS : 1980 Age: [...] Biometry: BPD ?42.8 ?mm ? 19w 0d ?Suasn SABA ?60.1 ?mm ? 19w 4d ?Nicolaides HC ?165.8 ?mm ?19w 2d ?Hadlock Cerebellum tr ?20.7 ? mm ?19w 5d ?Nicolaides AC ?142.5 ?mm ?19w 4d ?46% ?Hadlock Femur ?30.3 ? mm ?19w 3d ?Hadlock Humerus ?30.2 ?mm ? 20w 0d ?Tamika Weight Calculation: EFW ? 294 ? g ? 38% ?Hadlock EFW (lb,oz) ? 0 lb 10 ? oz EFW by ?Hadlock (TBR-BO-BN-FL) Head / Face / Neck Biometry: Wood Scrap Handler ? 5.8 ? mm CM ?3.5 ? [...] cava. Inferior vena cava. 3-vessel ? view. 7-dvdman-obystvm view. Cardiac position. Cardiac size. Cardiac rhythm. [...] also had a consultation today. Please see [facility] for full documentation of that encounter. Return to primary provider for continued care. If you have questions regarding today's evaluation or if we can be of further service, please contact the Maternal- Medicine Center. anomalies may be present but not detected Procedure Note Magdalena Garcia MD - 08/22/2021 Comprehensive Pat. Name:ARIANA GOMEZStmaria r Date: 8:04am Pat. NO: [id number] MD:ILIANA AMOS Site:[facility]onographer:Nubia OspinaAMADO :1980Age:41 INDICATION Advanced Maternal Age. Chrons. B12 [...] 0 lb 10 oz EFW by Hadlock ([id number]-SE-EJ-FL) Head / Face / Neck Biometry: Wood Scrap Handler 5.8 mm CM 3.5 mm Nasal bone [...] vena cava. Inferior vena cava. 3-vessel view. 0-zsndny-clhsjry view. Cardiac po sition. Cardiac size. Cardiac [...] also had a consultation today. Please see [facility] for full documentation of that encounter. Return [...] appears long and closed. Abraham Elder MD [facility] US ORDERABLES documented in this encounter Visit Diagnoses Diagnosis Crohns disease Regional enteritis of unspecified site Status post small bowel resection Other postprocedural status High-risk in second trimester documented in this encounter Care Teams Manager Dish Relationship Specialty Start Date End Date Bebeto Vargas MD PCP - General 03/09/08 documented as of this encounter
--- OUTSIDE RECORDS SUMMARY | 2021-11-08 09:45 | XMS_ITS | Encounter Summary ---
:1980 Author Organization [place] Address [facility] [place] [address] Care Team Providers Name Role Phone Bebeto Vargas MD Primary Care Provider Unavailable Reason for Referral Diagnostic Imaging Ultrasound (Routine) - Pending Review Specialty Diagnoses / Procedures Referred By Contact Refer red To Contact Diagnoses Crohn's disease (H) Status post small bowel resection High-risk in second trimester Abraham Eldre MD Procedures [facility] US Comprehensive Single [address] [place], [place] [address] Referral ID Status Reason Start Date Expiration Date Visits V isits Requested Authorized [id number] Pending 06/27/2021 06/27/2022 1 1 Review Encounter Details Date Type Department Care Team Description 06/27/2021 Orders Only [facility] Darya Almeida, Crohns disease (Primary Dx); Maternal Medicine RN Stat post small bowel resection; [facility] High-risk in secon d trimester [address] [place], [place] [address] Social History Tobacco Use Types Packs/Day Years [...] [address] [place] [address] (Wo rk) 12/06/2021 Office Visit Maternal and Medicine Sa thais France MD [address] [place] [address] (Wo rk) documented as of this encounter Results [facility] US Comprehensive Single [...] GOMEZ Study Date: 08/22/2021 8:04am Pat. NO: [id number] Referring ??: ROBI AMOS Site: [facility] Vending Technician: Nubia Ospina RD MS : 1980 Age: [...] lb 10 ? oz EFW by ?Hadlock ([id number]) Head / Face / Neck Biometry: Bobbin Trucker ? 5.8 ? mm CM ?3.5 ? [...] cava. Inferior vena cava. 3-vessel ? view. 9-yjroqd-xlhnnyc view. Cardiac position. Cardiac size. Cardiac rhythm. [...] also had a consultation today. Please see [employer] for full documentation of that encounter. Return to primary provider for continued care. If you have questions regarding today's evaluation or if we can be of further service, please contact the [facility]. anomalies may be present but not detected Procedure Note Magdalena Garcia MD - 08/22/2021 Comprehensive Pat. Name:ARIANA GOMEZSowmya Date: 8:04am Pat. NO: [id number] MD:ILIANA AMOS [facility]Nubia Ospina RDMS :1980Age:41 INDICATION Advanced Maternal [...] 0 lb 10 oz EFW by Hadlock ([id number]) Head / Face / Neck Biometry: Bobbin Trucker 5.8 mm CM 3.5 mm Nasal bone [...] vena cava. Inferior vena cava. 3-vessel view. 0-xxhbly-xgykcxh view. Cardiac po sition. Cardiac size. Cardiac [...] also had a consultation today. Please see [employer] for full documentation of that encounter. Return [...] appears long and closed. Abraham Elder MD [facility] US ORDERABLES documented in this encounter Visit Diagnoses Diagnosis Crohns disease - Primary Regional enteritis of unspecified site Status post small bowel resection Other postprocedural status High-risk in second trimester Crohns disease Regional enteritis of unspecified site Status post small bowel resection Other postprocedural status High-risk in second trimester documented in this encounter Care Teams Truck Driver Instructor Relationship Specialty Start Date End Date Bebeto Vargas MD PCP - General 03/09/08 documented as of this encounter
--- OUTSIDE RECORDS SUMMARY | 2021-11-08 09:45 | XMS_ITS | Encounter Summary ---
:1980 Author Organization [place] Address [address] [place] [address]. [place] [address] Care Team Providers Name Role Phone Bebeto Vargas MD Primary Care Provider Unavailable Encounter Details Date Type Department Care Team Description 06/13/2021 Medical Correspondence [facility] Scan, MATERNAL Health Info Mgmt Non-Provider MEDICINE CE NTER [facility] Srvcs PROVIDER SERVICE [address] [place] [address] [place] [address] [facility] [phone] [place] Social History Tobacco Use Types Packs/Day Years [...] [address] [place], [place] [address] (Wo rk) 12/06/2021 Office Visit Maternal and Medicine Sa thais France MD [address] [place] [address] (Wo rk) documented as of this encounter Visit Diagnoses Not on filedocumented in this encounter Care Teams Wood Fence Erector Relationship Specialty Start Date End Date Bebeto Vargas MD PCP - General 03/09/08 documented as of this encounter
--- OUTSIDE RECORDS SUMMARY | 2021-11-08 09:45 | XMS_ITS | Encounter Summary ---
:1980 Author Organization [place] Address [facility] [place] [address] Care Team Providers Name Role Phone Bebeto Vargas MD Primary Care Provider Unavailable Encounter Details Date Type Department Care Team Description 12/16/2012 Records - [facility] Kristina Reynoso K [address] Laboratory [address] [place] [address], [place] [address] [place], [place] Jared [address] [address] [employer], [place] [phone] [address] (Work) [phone] Social History Tobacco Use Types Packs/Day Years [...] [address] [place], [place] [address] (Wo rk) 12/06/2021 Office Visit Maternal and Medicine Sa thais France MD [address] [place], [place] [phone] (Wo rk) documented as of this encounter Procedures Procedure Name Priority Date/Time Associated Diagnosis Comme nts HEPATITIS C Routine 12/16/2012 11:49 AM Results for this ANTIBODY CDT procedure are i n the results section. documented in this encounter Results Hepatitis C antibody (12/16/2012 11:49 AM CDT) Analysis Performed At Patho logist Time Signature Hepatitis C Negative (Negative) 12/16/2012 [facility] 11:49 AM [facility] Specimen Anatomical Collection Method Collection Time Receive d Time (Source) Location / / Volume Laterality 12/16/2012 11:49 12/16/2012 AM CDT 11:49 AM CDT Charlotte Reynoso LAB - BLOOD ORDERABLES Performing Organization Address City/State/ZIP Code Phon e Number [place] [address] [address] [facility] documented in this encounter Visit Diagnoses Not on filedocumented in this encounter Care Teams Mortuary Beautician Relationship Specialty Start Date End Date Bebeto Vargas MD PCP - General 03/09/08 documented as of this encounter
--- OUTSIDE RECORDS SUMMARY | 2021-11-08 09:45 | XMS_ITS | Encounter Summary ---
:1980 Author Organization [place] Address [facility] [place] [address] Care Team Providers Name Role Phone Bebeto Vargas MD Primary Care Provider Unavailable Encounter Details Date Type Department Care Team Description 07/10/2014 Ambulatory - Health [facility] Provider, [facility] Health Information Management [address] [facility] [address] [place] [address] Social History Tobacco Use Types Packs/Day Years [...] [address] [place], [place] [address] (Wo rk) 12/06/2021 Office Visit Maternal and Medicine Sa thais France MD [address] [place], [place] [address] (Wo rk) documented as of this encounter Visit Diagnoses Not on filedocumented in this encounter Care Teams Electrician Chief Relationship Specialty Start Date End Date Bebeto Vargas MD PCP - General 03/09/08 documented as of this encounter
--- OUTSIDE RECORDS SUMMARY | 2021-11-08 09:45 | XMS_ITS | Encounter Summary ---
:1980 Author Organization [place] Address [facility] [place] [address] Care Team Providers Name Role Phone Bebeto Vargas MD Primary Care Provider Unavailable Reason for Visit Reason Comments Other nausea medication Encounter Details Date Type Department Care Team Description 06/29/2014 Communication - [facility] Charlotte Reynoso Other (nausea [facility] [address]) [facility] [address] [place] [address], [place] [address] [place] [facility] [address] [facility] [phone] [place], [place] (Work) [phone] Social History Tobacco Use Types Packs/Day Years [...] [address] [place], [place] [address] (Wo rk) 12/06/2021 Office Visit Maternal and Medicine Sa thais France MD [address] [place], [place] [phone] (Wo stephanie) documented as of this encounter Visit Diagnoses Diagnosis Nausea Nausea alone documented in this encounter Care Teams Burr Mill Operator Relationship Specialty Start Date End Date Bebeto Vargas MD PCP - General 03/09/08 documented as of this encounter
--- OUTSIDE RECORDS SUMMARY | 2021-11-08 09:45 | XMS_ITS | Encounter Summary ---
:1980 Author Organization [place] Address [facility] [place] [address] Care Team Providers Name Role Phone Bebeto Vargas MD Primary Care Provider Unavailable Encounter Details Date Type Department Care Team Description 11/07/2012 Records - [facility] Jose Araiza K [address] [facility] [address] [address] (Wo rk) Social History Tobacco Use Types Packs/Day Years [...] [address] [place], [place] [address] (Wo rk) 12/06/2021 Office Visit Maternal and Medicine Sa thais France MD [address] [place], [place] [phone] (Wo rk) documented as of this encounter Procedures Procedure Name Priority Date/Time Associated Diagnosis Comme nts HIV ANTIGEN Routine 11/07/2012 9:32 AM Results f or this ANTIBODY COMBO CDT procedure are in the results section. HEPATITIS C Routine 11/07/2012 9:32 AM Results f or this ANTIBODY CDT procedure are i n the results section. documented in this encounter Results (ABNORMAL) Hepatitis C antibody (11/07/2012 9:32 AM CDT) [facility] gist Method Time Signature Hepatitis C Equivocal, (Negative 11/07/2012 [facility] Antibody Suggest repeat. ) 9:32 AM CDT [facility] Specimen Anatomical Collection Method Collection Time Receive d Time (Source) Location / / Volume Laterality 11/07/2012 9:32 AM 3 9:32 CDT AM CDT Charlotte Reynoso LAB - BLOOD ORDERABLES Performing Organization Address [facility] Phon [place] [address] [address] [facility] HIV Antigen Antibody Combo (11/07/2012 9:32 AM CDT) Analysis Performed At [facility] logist Time Signature HIV Antigen Negative 11/07/2012 [facility] Antibody Combo 9:32 AM CDT [facility] Specimen Anatomical Collection Method Collection Time Receive d Time (Source) Location / / Volume Laterality 11/07/2012 9:32 AM 3 9:32 CDT AM CDT Narrative [facility] - 11/07/2012 9:32 AM CDT Effective 01/26/10, methodology is HIV 1/2 Antigen/Antibody Combination. ? Prior to 01/26/10, methodology wa s HIV 1/2 Antibody only. Charlotte Reynoso LAB - BLOOD ORDERABLES Performing Organization Address [facility] Phon e Number [place] [phone] [place], [place] [address]S LABORATORY [facility] [address] [place] [address], [facility] documented in this encounter Visit Diagnoses Not on filedocumented in this encounter Care Teams Automation Design Engineer Relationship Specialty Start Date End Date Bebeto Vargas MD PCP - General 03/09/08 documented as of this encounter
--- OUTSIDE RECORDS SUMMARY | 2021-11-08 09:45 | XMS_ITS | Encounter Summary ---
:1980 Author Organization [place] Address [facility] [address] Care Team Providers Name Role Phone Bebeto Vargas MD Primary Care Provider Unavailable Encounter Details Date Type Department Care Team Description 06/29/2014 Communication - Health [place] Charlotte Reynoso [address] Gomez [place], [facility] [address] [place] [address] [place] [facility] [phone] Social History Tobacco Use Types Packs/Day Years [...] [address] [place], [place] [address] (Wo rk) 12/06/2021 Office Visit Maternal and Medicine Sa thais France MD [address] [place], [place] [phone] (Wo rk) documented as of this encounter Visit Diagnoses Not on filedocumented in this encounter Care Teams Telemetry Technician Relationship Specialty Start Date End Date Bebeto Vargas MD PCP - General 03/09/08 documented as of this encounter
--- OUTSIDE RECORDS SUMMARY | 2021-11-08 09:45 | XMS_ITS | Encounter Summary ---
:1980 Author Organization [place] Address [facility] [place] [address] Care Team Providers Name Role Phone Bebeto Vargas MD Primary Care Provider Unavailable Encounter Details Date Type Department Care Team Description 11/07/2012 Records - [facility] Kristina Reynoso [facility] 6936 [facility] 6936 [facility], [facility] [address] [place] [address] [place] [phone] Social History Tobacco Use Types Packs/Day Years [...] [address] [place], [place] [address] (Wo rk) 12/06/2021 Office Visit Maternal and Medicine Sa thais France MD [address] [place], [place] [phone] (Wo rk) documented as of this encounter Procedures Procedure Name Priority Date/Time Associated Comments Diagnosis GYNECOLOGIC CYTOLOGY Routine 11/07/2012 9:33 AM R esults for this CDT procedure are i n the results section. documented in this encounter Results Gynecologic Cytology (PAP Smear) (11/07/2012 9:33 AM CDT) Specimen Anatomical Collection Method Collection Time Receive d Time (Source) Location / / Volume Laterality 11/07/2012 9:33 AM 3 9:33 CDT AM CDT Narrative [facility] - 11/07/2012 9:33 AM CDT [id number] ? Slide(s) 1 Specimen Type: ??SUREPATH SCREEN SOURCE: ENDOCERV CERVICAL PAP SMEAR INTERPRETATION: NEGATIVE FOR SQUAMOUS INTRAEPITHELIAL L ESION OR MALIGNANCY Based on Pap interpretation, HPV reflex test not performed. No Endocervical Cells Present; Patient Satisfactory for Interpretation PATIENT HISTORY Reflex HPV.................: Yes if ASC US High Risk..................: NO LMP/Menopause Date.........: 08/19/12 Abnormal Bleeding:.........: NO Pt Status..................: Control/Hormones.....: NONE Previous Normal/Date.......: 2010 Prev. Abn Date/Dx..........: NO Cervical Appearance........: NORMAL A. Anaid CT(ASCP) ?(elec tronically signed) Performed at: ??[address] [address] Date Received: 11/07/12 ?Date Compl eted: 11/18/12 ??ABN Complete: Charlotte QIU - SHERIE BAUMAN Performing Organization Address City/State/ZIP Code Phon [place] [id number] [place], [place] [address]S LABORATORY documented in this encounter Visit Diagnoses Not on filedocumented in this encounter Care Teams Instructional Materials Director Relationship Specialty Start Date End Date Bebeto Vargas MD PCP - General 03/09/08 documented as of this encounter
--- OUTSIDE RECORDS SUMMARY | 2021-11-08 09:45 | XMS_ITS | Encounter Summary ---
:1980 Author Organization [place] Address [facility] [place] [address] Care Team Providers Name Role Phone Bebeto Vargas MD Primary Care Provider Unavailable Encounter Details Date Type Department Care Team Description 03/16/2019 Records - [facility] HE CONVERSION Provider, Historica [...] [address] [place], [place] [address] (Wo rk) 12/06/2021 Office Visit Maternal and Medicine Sa thais France MD [address] [place] [address] (Wo rk) documented as of this encounter Visit Diagnoses Not on filedocumented in this encounter Care Teams Lime Vat Tender Relationship Specialty Start Date End Date Bebeto Vargas MD PCP - General 03/09/08 documented as of this encounter
--- OUTSIDE RECORDS SUMMARY | 2021-11-08 09:45 | XMS_ITS | Encounter Summary ---
:1980 Author Organization [place] Address [facility] [place] [address] Care Team Providers Name Role Phone Bebeto Vargas MD Primary Care Provider Unavailable Encounter Details Date Type Department Care Team Description 01/25/2014 Ambulatory - Health [place] Charlotte Reynoso Screening for [facility] 6936 [place] malignant neoplasm 6936 [facility] [address], [place] [address] [place] [address] [place] Prof Koko [place], [facility] [phone] Social History Tobacco Use Types Packs/Day Years [...] [address] [place], [place] [phone] (Wo rk) 12/06/2021 Office Visit Maternal and Medicine Sa thais France MD [address] [place], [place] [phone] (Wo stephanie) documented as of this encounter Procedures Procedure Name Priority Date/Time Associated Comments Diagnosis LAB RESULT - HIM SCAN 02/03/2014 2:51 PM [facility] POST DELIVERY GYNECOLOGIC CYTOLOGY Routine 01/25/2014 4:32 PM R esults for this CDT procedure are i n the results section. documented in this encounter Results LAB RESULT - HIM SCAN (02/03/2014 2:51 PM [facility] POST DELIVERY) Specimen (Source) Anatomical Location Collection Method / Collectio n Time Received Time / Laterality Volume Narrative This result has an attachment that is no t available. Historical Provider NON-BEAKER LAB TESTING Gynecologic Cytology (PAP Smear) (01/25/2014 4:32 PM CDT) Component Value Ref Test Analysis Performed At [facility] Method Time Signature Case Report Gynecologic Cytology Report ? Case: [id number] ? 02/03/2014 HEALTH 2:51 PM [place]. Authorizing Provider: ??Caridad Reynoso MD ?Ordering Provider: ? [facility]CEL POST DELIVERY [facility] Ordering Location: ? [facility] ? Collected: ? 01/25/2014 1632 ? LABO RATORY ? Family Medicine/OB ? First Screen: ? VALENTIN Coffey ?? Received: ?01/26/2014 1058 ? (ASCP) ? Specimen: ?SUREPATH PAP, SCREENING, Endocervical/cervical ? Interpretation Negative for squamous intraepithelial lesion or milena gnancy 02/03/2014 [facility] at ??2:50 PM 2:51 PM [facility] Result Flag Normal Normal 02/03/2014 [facility] 2:51 PM [facility] Specimen Adequacy Satisfactory for 02/03/2014 [facility] evaluation, 2:51 PM AIDAN endocervical/raymundo J[facility]O [facility] sformation zone LABORATORY component present Reflex Testing Yes if ASCUS 02/03/2014 [facility] 2:51 PM [facility] Specimen Anatomical Collection Method Collection Time Receive d Time (Source) Location / / Volume Laterality Specimen of CERVIX UTERI 01/25/2014 4:32 PM 4 unknown material STRUCTURE / CDT 10:58 AM CD T (specimen) Unknown Charlotte Reynoso LAB - SHERIE BAUMAN Performing Organization Address City/State/ZIP Code Phon [place] [address] [address] [facility] documented in this encounter Visit Diagnoses Diagnosis Screening for malignant neoplasm of the cervix documented in this encounter Care Teams Neck Band Setter Relationship Specialty Start Date End Date Bebeto Vargas MD PCP - General 03/09/08 documented as of this encounter
--- OUTSIDE RECORDS SUMMARY | 2021-11-08 09:45 | XMS_ITS | Encounter Summary ---
:1980 Author Organization [place] Address [facility] [place] [address] Care Team Providers Name Role Phone Bebeto Vargas MD Primary Care Provider Unavailable Encounter Details Date Type Department Care Team Description 07/18/2011 Records - [facility] Kristina Reynoso [facility] [address] [place] [address] 6936 [facility], [facility] [address] [place] [address] [place] [phone] Social History Tobacco Use Types Packs/Day Years [...] [address] [place], [place] [address] (Wo rk) 12/06/2021 Office Visit Maternal and Medicine Sa thais France MD [address] [place], [place] [address] (Wo rk) documented as of this encounter Procedures Procedure Name Priority Date/Time Associated Diagnosis Comme nts LIPID PROFILE Routine 07/24/2011 8:52 AM Results for this CDT procedure are i n the results section . documented in this encounter Results Lipid Profile (07/24/2011 8:52 AM CDT) [facility] gist Method Time Signature LDL Cholesterol 69.3 <130.1 07/24/2011 [facility]ALTH Calculated mg/dL 8:52 AM CDT [facility] Cholesterol 130 <200 mg/dL 07/24/2011 [facility] 8:52 AM CDT [facility] Direct Measure HDL 48 >39 mg/dL 07/24/2011 [facility] 8:52 AM CDT [facility] Triglycerides 63 <151 mg/dL 07/24/2011 [facility] 8:52 AM CDT [facility] Specimen Anatomical Collection Method Collection Time Receive d Time (Source) Location / / Volume Laterality 07/24/2011 8:52 AM 201 2 8:52 CDT AM CDT Charlotte Reynoso LAB - BLOOD ORDERABLES Performing Organization Address City/State/ZIP Code Phon e Number [facility] [place] [address] [facility] [address] [place] [address] Professional Building [facility] [address] [place] [address] CLINIC LABORATORY [facility] PROFESSIONAL BUILDING documented in this encounter Visit Diagnoses Not on filedocumented in this encounter Care Teams Client Services Analyst Relationship Specialty Start Date End Date Bebeto Vargas MD PCP - General 03/09/08 documented as of this encounter
--- OUTSIDE RECORDS SUMMARY | 2021-11-08 09:45 | XMS_ITS | Encounter Summary ---
:1980 Author Organization [place] Address [facility] [place] [address] Care Team Providers Name Role Phone Bebeto Vargas MD Primary Care Provider Unavailable Encounter Details Date Type Department Care Team Description 03/09/2014 Records - [facility] CONVERSION Provider, Historica [...] - Inhaled Oxygen Concentration - - Weight - - Height 157.5 cm (5' 2) 03/09/2014 10:00 AM INTERNATIONAL RELATIONS TEACHER Body Mass Index - - documented in this encounter Plan of Treatment Upcoming Encounters Date Type Specialty Care Team Description 12/06/2021 Appointment Radiology. Sadie France MD [address] [place], [place] [address] (Wo rk) 12/06/2021 Office Visit Maternal and Medicine Sa thais France MD [address] [place], [place] [phone] (Wo rk) documented as of this encounter Visit Diagnoses Not on filedocumented in this encounter Care Teams Chemical Analytical Sampler Relationship Specialty Start Date End Date Bebeto Vargas MD PCP - General 03/09/08 documented as of this encounter
--- OUTSIDE RECORDS SUMMARY | 2021-11-08 09:45 | XMS_ITS | Encounter Summary ---
:1980 Author Organization [place] Address [facility] [place] [address] Care Team Providers Name Role Phone Bebeto Vargas MD Primary Care Provider Unavailable Encounter Details Date Type Department Care Team Description 03/09/2014 Records - [facility] CONVERSION Provider, Historica zay Social History Tobacco Use Types Packs/Day Years [...] - Inhaled Oxygen Concentration - - Weight 49 kg (108 lb) 03/09/2014 10:00 AM GIRL FRIDAY Height - - Body Mass Index 19.75 03/09/2014 10:00 AM GIRL FRIDAY documented in this encounter Plan of Treatment Upcoming Encounters Date Type Specialty Care Team Description 12/06/2021 Appointment Radiology. Sadie France MD [address] [place], [place] [phone] (Wo rk) 12/06/2021 Office Visit Maternal and Medicine Sa thais France MD [address] [place], [place] [phone] (Wo rk) documented as of this encounter Visit Diagnoses Not on filedocumented in this encounter Care Teams M48 M60 Armor Crewman Relationship Specialty Start Date End Date Bebeto Vargas MD PCP - General 03/09/08 documented as of this encounter
--- OUTSIDE RECORDS SUMMARY | 2021-11-08 09:45 | XMS_ITS | Encounter Summary ---
:1980 Author Organization [place] Address [facility] [place] [address] Care Team Providers Name Role Phone Bbeeto Vargas MD Primary Care Provider Unavailable Encounter Details Date Type Department Care Team Description 03/10/2014 Anesthesia - [facility] OR Provider, Histori jen Social History Tobacco Use Types Packs/Day Years [...] [address] [place], [place] [phone] (Wo rk) 12/06/2021 Office Visit Maternal and Medicine Sa thais France MD [address] [place], [place] [address] (Wo rk) documented as of this encounter Visit Diagnoses Not on filedocumented in this encounter Care Teams Customer Relations Advisor Relationship Specialty Start Date End Date Bebeto Vargas MD PCP - General 03/09/08 documented as of this encounter
--- OUTSIDE RECORDS SUMMARY | 2021-11-08 09:45 | XMS_ITS | Encounter Summary ---
:1980 Author Organization [place] Address [facility] [place] [address] Care Team Providers Name Role Phone Bebeto Vargas MD Primary Care Provider Unavailable Encounter Details Date Type Department Care Team Description 07/24/2019 Records - [facility] CONVERSION Provider, Historica [...] [address] [place], [place] [address] (Wo rk) 12/06/2021 Office Visit Maternal and Medicine Sa thais France MD [address] [place] [address] (Wo rk) documented as of this encounter Visit Diagnoses Not on filedocumented in this encounter Care Teams Title Vehicle Service Attendant Relationship Specialty Start Date End Date Bebeto Vargas MD PCP - General 03/09/08 documented as of this encounter
--- OUTSIDE RECORDS SUMMARY | 2021-11-08 09:45 | XMS_ITS | Encounter Summary ---
:1980 Author Organization [place] Address [facility] [place] [address] Care Team Providers Name Role Phone Bebeto Vargas MD Primary Care Provider Unavailable Reason for Referral Consultation (Routine: Next available opening) - Pending Review Specialty Diagnoses / Procedures Referred By Contact Refer red To Contact Diagnoses related condition, antepartum Sari Perez CNM [facility] [address] [place] [address] Referral ID Status Reason Start Date Expiration Date Visits V isits Requested Authorized [id number] Pending 06/27/2021 06/27/2022 1 1 Review Encounter Details Date Type Department Care Team Description 06/27/2021 Transcribe Orders [facility] Sari Perez P regnancy related Maternal CN condition, Medicine Center [facility] antepartum (Primary [facility] Dx) [address] [place] [address] [phone] Social History Tobacco Use Types Packs/Day Years [...] [address] [place] [address] (Wo rk) 12/06/2021 Office Visit Maternal and Medicine Sa thais France MD [address] [place] [address] (Wo rk) Scheduled Referrals Name Type Priority Associated Diagnoses Order S [facility] Office Visit Referral Routine: Next related Expec onelia: available opening condition, antepartum 0 08/11/2021 (Approximate), Expires: 06/27/2022 documented as of this encounter Visit Diagnoses Diagnosis related condition, antepartum - Primary documented in this encounter Care Teams Flasher Adjuster Relationship Specialty Start Date End Date Bebeto Vargas MD PCP - General 03/09/08 documented as of this encounter
--- OUTSIDE RECORDS SUMMARY | 2021-11-08 09:45 | XMS_ITS | Encounter Summary ---
:1980 Author Organization [place] Address [address] [place] [address] Care Team Providers Name Role Phone Bebeto Vargas MD Primary Care Provider Unavailable Reason for Visit Reason Comments Pre-Op Exam Bilateral Tonsillectomy and Bilateral Adenoidectomy, 03/11/2014, Dr[facility] [place] Encounter Details Date Type Department Care Team Description 03/08/2014 Office Visit - [facility] Josh, Preop ex amination; [facility] Isidro Suárez MD Tonsil pain [address] [facility] [address] [place] [address] Dr Gomez Coleman Prof [facility] [address] [facility], [address] [place] [id number] Social History Tobacco Use Types Packs/Day Years [...] - - Weight 49 kg (108 lb) 03/08/2014 9:38 AM OFFICE HELPER Height 157.5 cm (5' 2) 03/08/2014 9:38 AM OFFICE HELPER Body Mass Index 19.75 03/08/2014 9:38 AM OFFICE HELPER documented in this encounter Progress Notes Historical Provider - 03/08/2014 9:34 AM CST Assessment/Plan: Visit for Preoperative Exam. Patient approved for surgery with general or local anesthesia. Labs will be done as indicated. Aboverecommendations were reviewed with the patient. Follow up as needed. Patient is her 10 month old. She is aware of need to pump and dump for 24 hours after surgery. Subjective: Scheduled Procedure: Bilateral Tonsillectomy and Bilateral Adenoidectomy Surgery Date: 03/11/2014 Surgery Location: [place] Surgeon: Dallin Barber MD Patient has had persistent swelling of her tonsils and now presents for surgical removal of tonsils and adenoids. Current Outpatient Prescriptions Medication Sig Dispense Refill ??? mesalamine (PENTASA) 500 MG CR capsule Take 1,000 mg by mouth 4 (four) times a day. No current facility-administered medications for this visit. No Known Allergies Immunization History Administered Date(s) Administered ??? Hep A, historic 05/13/2007, 06/29/2010 ??? Influenza, inj, historic 02/14/2008 ??? Influenza,seasonal quad, PF 01/08/2013, 01/25/2014 ??? Tdap 05/13/2007, 04/29/2013 Patient Active Problem List Diagnosis ??? Lactase Deficiency Syndrome ??? Exercise-induced Asthma ??? Palpitations ??? Migraine Headache ??? Contact Dermatitis ??? Hypokalemia ??? Supraventricular Tachycardia ??? Vitamin D Deficiency ??? Allergic Rhinitis Due To Pollen ??? Crohn's Disease Past Medical History Diagnosis Date ??? Crohn's disease ??? Allergic rhinitis ??? Vitamin D deficiency ??? Supraventricular tachycardia ??? Migraine ??? Lactase deficiency disease ??? Exercise-induced asthma History Social History ??? Marital Status: Spouse Name: N/A Number of Children: N/A ??? Years of Education: N/A Occupational History ??? Not on file. Social History Main Topics ??? Smoking status: Never Smoker ??? Smokeless tobacco: Never Used ??? Alcohol Use: 0.6 oz/week 1 Glasses of wine per week ??? Drug Use: No ??? Sexual Activity: Yes Partners: Male Other Topics Concern ??? Not on file Social History Narrative ??? No narrative on file Past Surgical History Procedure Laterality Date ??? Pr appendectomy 2002 Description: Appendectomy; Recorded: 02/17/2009; ??? Pr resect small intest,singl resec/anas 2002 Description: Small Bowel Resection; Recorded: 02/17/2009; ??? Other surgical history 2012 Cardiac Ablation History of Present Illness Recent Health Fever: no Chills: no Fatigue: no Chest Pain: no Cough: no Dyspnea: no Urinary Frequency: no Nausea: no Vomiting: no Diarrhea: no Abdominal Pain: no Easy Bruising: no Lower Extremity Swelling: no Poor Exercise Tolerance: no Most recent Health Maintenance Visit: 2 month(s) ago Pertinent History Prior Anesthesia: no Previous Anesthesia Reaction: no Diabetes: no Cardiovascular Disease: no Pulmonary Disease: no Renal Disease: no GI Disease: yes, Crhon's Sleep Apnea: no Thromboembolic Problems: no Clotting Disorder: no Bleeding Disorder: no Transfusion Reaction: no Impaired Immunity: no Steroid use in the last 6 months: yes Frequent Aspirin use: no Family history of Negative Social history of there are no concerns regarding care after surgery After surgery, the patient plans to recover at home with family. Review of Systems A 12 point comprehensive review of systems was negative except as noted. Objective: BP 92/66 Pulse 97 Temp(Src) 98.3 ??F (36.8 ??C) (Oral) Resp 16 Ht 5' 2 (1.575 m) Wt 108 lb (48.988 kg) BMI 19.75 kg/m2 SpO2 97% LMP 03/01/2014 ? Yes Physical Exam: Physical Exam: General Appearance: Alert, cooperative, no distress, appears stated age Head: Normocephalic, without obvious abnormality, atraumatic Eyes: PERRL, conjunctiva/corneas clear, EOM's intact Ears: Normal TM's and external ear canals, both ears Nose: Nares normal, septum midline,mucosa normal, no drainage Throat: Lips, mucosa, and tongue normal; teeth and gums normal Neck: Supple, symmetrical, trachea midline, no adenopathy; thyroid: not enlarged, symmetric, no tenderness/mass/nodules; no carotid bruit or JVD Back: Symmetric, no curvature, ROM normal, no CVA tenderness Lungs: Clear to auscultation bilaterally, respirations unlabored Heart: Regular rate and rhythm, S1 and S2 normal, no murmur, rub, or gallop, Abdomen: Soft, non-tender, bowel sounds active all four quadrants, no masses, no organomegaly Pelvic:not done Extremities: Extremities normal, atraumatic, no cyanosis or edema Skin: Skin color, texture, turgor normal, no rashes or lesions Lymph nodes: Cervical normal Neurologic: Normal Recent Results (from the past 240 hour(s)) B-HCG, QUALATATIVE, URINE Result Value Range Test, Urine Negative Specific [place], UA 1.025 1.001-1.030 URINALYSIS Result Value Range Color, UA Yellow Colorless, Yellow, Straw, Light Yellow Clarity, UA Clear Clear Glucose, UA Negative Negative Bilirubin, UA Negative Negative Ketones, UA Trace (*) Negative Specific [place], UA 1.025 1.002-1.030 Blood, UA Negative Negative pH, UA 5.5 4.5-8.0 Protein, UA Negative Negative mg/dL Urobilinogen, UA 0.2 E.U./dL 0.2 E.U./dL, 1.0 E.U./dL Nitrite, UA Negative Negative Leukocytes, UA Negative Negative HEMOGLOBIN Result Value Range Hemoglobin 13.5 12.0-16.0 g/dL documented in this encounter Plan of Treatment Upcoming Encounters Date Type Specialty Care Team Description 12/06/2021 Appointment Radiology. Sadie France MD [address] [place], [place] [id number] (Wo rk) 12/06/2021 Office Visit Maternal and Medicine Sa thais France MD [address] [place], [place] [address] (Wo rk) documented as of this encounter Visit Diagnoses Diagnosis Preop examination Preoperative examination, unspecified Tonsil pain Other diseases of pharynx, not elsewhere classified documented in this encounter Care Teams Patient Liaison Relationship Specialty Start Date End Date Bebeto Vargas MD PCP - General 03/09/08 documented as of this encounter
--- OUTSIDE RECORDS SUMMARY | 2021-11-08 09:45 | XMS_ITS | Encounter Summary ---
:1980 Author Organization [place] Address [facility] [place] [address] Care Team Providers Name Role Phone Bebeto Vargas MD Primary Care Provider Unavailable Reason for Visit Reason Comments Ultrasound L2- AMA, Crohn's, B12 defici ency, Covid in Consult AMA, Crohn's, B12 deficiency , Covid in Encounter Details Date Type Department Care Team Description 08/15/2021 PRE VISIT [facility] Nazanin Moran, Ultraso und (L2- AMA, [facility], B12 [facility], [facility] Covid in ); [address] Consult (AMA, Crohn's, [place], [place] [address] B12 deficiency, Covid in [phone] ) Social History Tobacco Use Types Packs/Day Years [...] [phone] (Wo rk) 12/06/2021 Office Visit Maternal and Medicine Sa thais France MD [address] [address] (Wo rk) documented as of this encounter Visit Diagnoses Not on filedocumented in this encounter Care Teams Filling Layer Up Relationship Specialty Start Date End Date Bebeto Vargas MD PCP - General 03/09/08 documented as of this encounter
--- OUTSIDE RECORDS SUMMARY | 2021-11-08 09:45 | XMS_ITS | Encounter Summary ---
:1980 Author Organization [place] Address [facility] [place] [address] Care Team Providers Name Role Phone Bebeto Vargas MD Primary Care Provider Unavailable Encounter Details Date Type Department Care Team Description 01/25/2014 Ambulatory - [facility] [place] [facility] [address] [place] of unspecified site [address] [facility] Dr Gomez Richards S, [place] [address] [place] [address] [place] Prof [place] [facility] [phone] Social History Tobacco Use Types Packs/Day Years [...] [address] [place], [place] [phone] (Wo rk) 12/06/2021 Office Visit Maternal and Medicine Sa thais France MD [address] [place], [place] [phone] (Wo rk) documented as of this encounter Visit Diagnoses Diagnosis Regional enteritis of unspecified site documented in this encounter Care Teams Agency Sales Management Assistant Relationship Specialty Start Date End Date Bebeto Vargas MD PCP - General 03/09/08 documented as of this encounter
--- OUTSIDE RECORDS SUMMARY | 2021-11-08 09:45 | XMS_ITS | Encounter Summary ---
:1980 Author Organization [place] Address [facility] [place] [address] Care Team Providers Name Role Phone Bebeto Vargas MD Primary Care Provider Unavailable Reason for Visit Reason Comments Medication Refill Encounter Details Date Type Department Care Team Description 2014 Communication - [place] Centralized [place] Reyn[place] Medication Refill Health[address], [address] [place] [id number] Social History Tobacco Use Types Packs/Day Years [...] [address] [place] [address] (Wo rk) 12/06/2021 Office Visit Maternal and Medicine Sa thais France MD [address] [place] [address] (Wo rk) documented as of this encounter Visit Diagnoses Diagnosis Crohn's colitis, without complications ( H) documented in this encounter Care Teams Ict Quality Assurance Engineer Relationship Specialty Start Date End Date Bebeto Vargas MD PCP - General 03/09/08 documented as of this encounter
--- OUTSIDE RECORDS SUMMARY | 2021-11-08 09:45 | XMS_ITS | Encounter Summary ---
:1980 Author Organization [place] Address [facility] [place] [address] Care Team Providers Name Role Phone Bebeto Vargas MD Primary Care Provider Unavailable Encounter Details Date Type Department Care Team Description 01/25/2014 Ambulatory - [facility] [place] [facility] [facility] [address] [place] of unspecified site [address] [facility] [address] Gomez Richards S, [place] [address] [place] [address] [place] Prof [place] [facility] [phone] Social History Tobacco Use Types Packs/Day Years [...] [address] [place], [place] [phone] (Wo rk) 12/06/2021 Office Visit Maternal and Medicine Sa thais France MD [address] [place], [place] [phone] (Wo rk) documented as of this encounter Visit Diagnoses Diagnosis Regional enteritis of unspecified site documented in this encounter Care Teams Washer Operator Relationship Specialty Start Date End Date Bebeto Vargas MD PCP - General 03/09/08 documented as of this encounter
--- OUTSIDE RECORDS SUMMARY | 2021-11-08 09:45 | XMS_ITS | Encounter Summary ---
:1980 Author Organization [place] Address [address] [place] [address]. [place] [address] Care Team Providers Name Role Phone Bebeto Vargas MD Primary Care Provider Unavailable Reason for Referral Consultation (Routine: Next available opening) - Pending Review Specialty Diagnoses / Procedures Referred By Contact Refer red To Contact Diagnoses related condition Sari Perez CNM [facility] [address] [place] [address] Referral ID Status Reason Start Date Expiration Date Visits V isits Requested Authorized [id number] Pending 06/14/2021 06/14/2022 1 1 Review Encounter Details Date Type Department Care Team Description 06/14/[address] [facility] Sari Perez P regnancy related Maternal CN condition (Primary Medicine Center [facility] Dx) [facility] [address] [facility] [address] [place] [phone] Social History Tobacco Use Types Packs/Day Years [...] [address] [place] [address] (Wo rk) 12/06/2021 Office Visit Maternal and Medicine Sa thais France MD [address] [place] [address] (Wo rk) Scheduled Referrals Name Type Priority Associated Diagnoses Order S chedule [facility] Referral Routine: Next related Expe cted: Referral - available opening condition 06/14/2021 (Approximate), Expires: 12/11/2021 documented as of this encounter Visit Diagnoses Diagnosis related condition - Primary Unspecified complication of , u nspecified as to episode of care documented in this encounter Care Teams Business Supervisor Relationship Specialty Start Date End Date Bebeto Vargas MD PCP - General 03/09/08 documented as of this encounter
--- OUTSIDE RECORDS SUMMARY | 2021-11-08 09:45 | XMS_ITS | Encounter Summary ---
:1980 Author Organization [place] Address On license of [facility] [place] [address] Care Team Providers Name Role Phone Bebeto Vargas MD Primary Care Provider Unavailable Reason for Visit Reason Comments Ultrasound L2- AMA, Crohns, B12 deficie ncy, covid in preg Consult MFM-AMA, Crohns, B12 deficie ncy, covid in preg Encounter Details Date Type Department Care Team Description 08/22/2021 Office Visit [facility] Karen Perez, [facility] [address] [place] [address] related condition, antepartum (Primary Dx); Maternal Magdalena Garcia MD [address] [place] [address] Choroid plexus cyst of fetus affecting c are of mother, antepartum, not applicable or unspecified fetus; Medicine Center Multigravida of advanced maternal age in second trimester [address] [address] Social History Tobacco Use Types Packs/Day Years [...] documented as of this encounter Progress Notes Magdalena Garcia MD - 08/22/2021 8:45 AM CDT Maternal- Medicine Consultation Ariana Espinoza : 1980 REFERRAL: Ariana Espinoza is a 41 year old sent by Ms. Perez from [facility] for MFM consultation. HPI: Ariana Espinoza is a 41 year old at 19w4d by LMP consistent with 8w4d US here for MFM consultation regarding Crohn's disease. She is here with her partner, Ru. She was diagnosed with Crohn's disease 09/2002. She presented with abdominal pain and underwent colonoscopy, which was normal. She was then diagnosed with a perforated small bowel and underwent small bowel resection, in which 1 foot of the bowel was removed, including the foot of the terminal ileum. She has been intermittently been seen by GI at [facility], Dr. Carbajal. Had a colonoscopy and biopsyon 10/2018, which was consistent with Crohn's. She is not currently on any medications for her Crohn'disease. She has done very well and has not had any flares recently. She notes adequate control during her previous pregnancies. She has done glucose tolerance tests in her previous pregnancies withoutdumping syndrome. She was previously diagnosed with B12 deficiency, though on her last check on 06/06/2021, it was normal at 246. Care: Primary OB care this has been with Ms. Perez from [facility]. Obstetrics History: OB History Para Term AB Living 4 3 3 0 0 3 SAB IAB Ectopic Multiple Live Births 0 0 0 0 3 # Outcome Date GA Lbr Luiz/2nd Weight Sex Delivery Anes PTL Lv 4 Current 3 Term 05/13/13 38w1d 3.314 kg (7 lb 4.9 oz) M Vag-Spont N BERTA Apgar1: 9 Apgar5: 9 2 Term 05/17/08 39w0d 3.785 kg (8 lb 5.5 oz) M Vag-Spont BERTA Comments: LML, no extension, near brow presentation Name: Mick Apgar1: 9 Apgar5: 9 1 Term 04/28/06 37w0d 04:00 3.487 kg (7 lb 11 oz) M Vag-Spont Y BERTA Comments: 4th depgree laceration Name: Brian Apgar1: 9 Apgar5: 9 Past Medical History: Past Medical History: Diagnosis Date ??? Bowel perforation (H) 2002 ??? Childhood asthma ??? Crohn's disease (H) 2002 Primary GI: [facility] Past Surgical History: Past Surgical History: Procedure Laterality Date ??? CARDIAC ELECTROPHYSIOLOGY MAPPING AND ABLATION 2012 HX SVT ??? OTHER SURGICAL HISTORY 2011 Cardiac Ablation ??? SMALL BOWEL RESECTION 2002 Along with an Appy ??? [facility] APPENDECTOMY 2002 Description: Appendectomy; Recorded: 02/17/2009; ??? [facility] ORAL SURGERY PROCEDURE 2000 4 wisdom teeth ??? [facility] RESECT SMALL INTEST,SINGL RESEC/ANAS 2002 Description: Small Bowel Resection; Recorded: 02/17/2009; Current Medications: Prior to Admission medications Medication Sig Last Dose Taking? Auth Provider FOLIC ACID 1 MG OR TABS ONE DAILY Bebeto Vargas MD PENTASA 500 MG OR CPCR 2 tabs 4 times a day Bebeto Vargas MD VITAMIN TABS OR ONE DAILY Bebeto Vargsa MD VITAMIN B-12 1000 MCG OR TABS Bebeto Vargas MD ZANTAC 150 MG OR TABS ONE TABLET TWICE DAILY Bebeto Vargas MD Allergies: Patient has no known allergies. Social History: Occupation: Nurse practioner at [employer] Denies use of alcohol, drugs or smoking. Family History: Denies history of genetic disorders, preeclampsia, thromboembolic disease, bleeding disorders, developmental delay. ROS: 10-point ROS negative except as in HPI PHYSICAL EXAM: Deferred Other Imaging: Alfonso . Number of fetuses: 1 ? DATING Date Details Gest. age RACHEL LMP 04/07/2021 19 w + 4 d 01/12/2022 Prior assessment 06/06/2021 GA: 8 w + 4 d 19 w + 4 d 01/12/2022 U/S 08/22/2021 based upon AC, BPD, Femur, HC 19 w + 2 d 01/14/2022 Assigned dating Dating performed on 08/22/2021, based on the LMP 19 w + 4 d 01/12/2022 ? GENERAL EVALUATION Cardiac activity present. FHR 155 bpm. movements present. Presentation cephalic. Placenta Anterior, anterior, low lying. Umbilical cord 3 vessel cord. Amniotic fluid normal MVP, MVP 5.5 cm. ? BIOMETRY Main Biometry: BPD 42.8 mm 19w 0d Hadlock OFD 60.1 mm 19w 4d Nicolaides HC 165.8 mm 19w 2d Hadlock Cerebellum tr 20.7 mm 19w 5d Nicolaides AC 142.5 mm 19w 4d 46% Hadlock Femur 30.3 mm 19w 3d Hadlock Humerus 30.2 mm 20w 0d Tamika Weight Calculation: EFW 294 g 38% Hadlock EFW (lb,oz) 0 lb 10 oz EFW by Hadlock ([id number]) Head / Face / Neck Biometry: Ad Copy Writer 5.8 mm CM 3.5 mm Nasal bone 5.2 mm Nuchal fold 5.0 mm ? ANATOMY Head / Neck Left choroid plexus: cyst ?? The following structures appear normal: Head / Neck Cranium. Head size. Head shape. Lateral ventricles. Midline falx. Cavum septi pellucidi.Cerebellum. Cisterna magna. Parenchyma. Thalami. Vermis. Neck. Nuchal fold. Face Lips. Profile. Nose. Maxilla. Mandible. Orbits. Lens. Heart / Thorax 4-chamber view. RVOT view. LVOT view. Situs. Aortic arch view. Bicaval view. Ductal arch view. Superior vena cava. Inferior vena cava. 3-vessel view. [id number] view. Cardiac position. Cardiac size. Cardiac rhythm. Right lung. Left lung. Diaphragm. Abdomen Abdominal wall. Cord insertion. Stomach. Kidneys. Bladder. Liver. Bowel. Genitals. Spine Cervical spine. Thoracic spine. Lumbar spine. Sacral spine. Extremities / Skeleton Right arm. Right hand. Left arm. Left hand. Right leg. Right foot. Left leg. Left foot. ?? Gender: female. ? MATERNAL STRUCTURES Cervix Visualized Appearance: Appears Closed Cervical length 41.0 mm Right Ovary Visualized Left Ovary Visualized ? RECOMMENDATION Thank-you for referring your patient for a comprehensive ultrasound. She had low risk first trimester screen. ?? I discussed the findings on today's ultrasound with the patient. I reviewed the limitations of ultrasound both in detecting aneuploidy and structural abnormalities. We discussed the finding of the unilateral choroid plexus cyst. We discussed that choroid plexus cysts are seen in normal pregnancies as an isolated finding with no clinically significant impact. They can be unilateral or bilateral and result from the trapping of CSF within the choroid plexus. We reviewed that in the setting of her otherwise structurally normal ultrasound today this is likely to be a normal variant and requires no additional follow-up. We also reviewed that this finding does not impact structural brain development or function. ?? The placenta today is 1.3 cm from the cervical os, which is low lying. As progresses this finding is very likely to resolve prior to delivery. A follow up ultrasound is recommended in your office in the third trimester to reevaluate growth in the setting of maternal COVID infection in . ?? Ariana also had a consultation today. Please see [facility] for full documentation of that encounter. ?? Return to primary provider for continued care. ?? If you have questions regarding today's evaluation or if we can be of further service, please contact the Maternal- Medicine Center. ?? anomalies may be present but not detected ? IMPRESSION 1) Alfonso intrauterine at 19w 4d gestational age. 2) There is a small choroid plexus cyst. Otherwise, none of the anomalies commonly detected by ultrasound were evident in the detailed anatomic survey as described above. 3) Growth parameters and estimated weight were consistent with established dates. 4) The amniotic fluid volume appeared normal. 5) Normal activity for gestational age. 6) On transabdominal imaging the cervix appears long and closed. ASSESSMENT/PLAN: Ariana Espinoza is a 41 year old at 19w4d by LMP consistent with 8w4d US here for MFM consultation regarding: Crohn's Disease We discussed that risks of IBD in include miscarriage, growth restriction/small for gestational age , premature delivery, poor maternal weight gain, and complications of labor anddelivery including increased risk of preeclampsia, abruption, and delivery. Specifically these risks are significantly increased in the presence of active disease. We reviewed that given that Ms. Toribios Crohn's disease has been relatively quiescent, her risks of these complications are quite low. Furthermore, she has tolerated previous pregnancies from a GI perspective well without flares.We discussed that given her terminal ileum involvement and prior resection, she is at risk for vitamin B12 deficiency. She was checked at the beginning of this and her Vitamin B12 level was notably normal. We discussed that mode of delivery should be dictated by the usual obstetric indications unless the patient has a history of a prior rectovaginal fistula or there is evidence of active perianal disease, which can theoretically predispose to fistula formation if episiotomy or obstetrical/perineal laceration is incurred. Women with IBD who undergo delivery should receive prophylactic lovenox during their hospitalization Recommendations: - She previously had low risk serum aneuploidy screening. - She had a normal Level II ultrasound today. - A follow up ultrasound in the third trimester is recommended due to maternal COVID in and low lying placenta - Given Crohn's disease, low dose aspirin for preeclampsia not recommended. The patient was seen and evaluated with Dr. Garcia. Thank you for allowing us to participate in the care of your patient. Please do not hesitate to contact us if you have further questions regarding the management of your patient. Karishma Zamarripa MD Maternal Medicine Fellow MFM Attending Attestation I have seen and evaluated the patient myself with the fellow. I spent a total of 20 minutes on the day of the encounter including counseling, coordination of care, review of records and documentation. Magdalena Garcia MD Maternal Medicine documented in this encounter Nursing Notes Darya Almeida, HUBERT - 08/22/2021 8:45 AM CDT Ariana, accompanied by her SO, here in clinic for L2 and MFM consult. Dr. Garcia and Dr. Zamarripa met with pt (see consult note). Darya Almeida RN documented in this encounter Plan of Treatment Upcoming Encounters Date Type Specialty Care Team Description 12/06/2021 Appointment Radiology. Sadie France MD [address] [place], [place] [address] (Wo rk) 12/06/2021 Office Visit Maternal and Medicine Sa thais France MD [address] [place], [place] [address] (Wo rk) documented as of this encounter Visit Diagnoses Diagnosis related condition, antepartum - Primary Choroid plexus cyst of fetus affecting c are of mother, antepartum, not applicable or unspecified fetus Multigravida of advanced maternal age in second trimester documented in this encounter Care Teams Shingler Relationship Specialty Start Date End Date Bebeto Vargas MD PCP - General 03/09/08 documented as of this encounter
--- OUTSIDE RECORDS SUMMARY | 2021-11-08 09:45 | XMS_ITS | Encounter Summary ---
:1980 Author Organization [place] Address Formerly [facility] [place] [address] Care Team Providers Name Role Phone Bebeto Vargas MD Primary Care Provider Unavailable Encounter Details Date Type Department Care Team Description 03/18/2019 Records - [facility] CONVERSION Provider, Historica [...] [address] [place], [place] [address] (Wo rk) 12/06/2021 Office Visit Maternal and Medicine Sa thais France MD [address] [place] [address] (Wo rk) documented as of this encounter Visit Diagnoses Not on filedocumented in this encounter Care Teams Sports Editor Relationship Specialty Start Date End Date Bebeto Vargas MD PCP - General 03/09/08 documented as of this encounter
--- OUTSIDE RECORDS SUMMARY | 2021-11-08 09:46 | XMS_ITS | Encounter Summary ---
:1980 Author Organization [place] Address [address] [place] [address] Care Team Providers Name Role Phone Bebeto Vargas MD Primary Care Provider Unavailable Reason for Visit Reason Comments Care Encounter Details Date Type Department Care Team Description 03/18/2008 Office [facility] Bebeto Vargas [facility] er Threatened Labor, Antepartum; Visit Women[facility] MD Martha High Risk Pre gnancy; [place] Crohns Disease (H) [address] [facility] [address] [place] [address] Social History Tobacco Use Types Packs/Day Years Used Date Never Smoker Alcohol Use Standard Drinks/Week Comments No 0 (1 standard drink = 0.6 oz pure alcoho l) Sex Assigned at Date Recorded Not on file documented as of this encounter Last Filed Vital Signs Vital Sign Reading Time Taken Comments Blood Pressure 120/78 03/18/2008 4:30 PM MERCHANDISE FLOW TEAM LEADER Pulse - - Temperature - - Respiratory Rate - - Oxygen Saturation - - Inhaled Oxygen Concentration - - Weight 62.7 kg (138 lb 4.8 oz) 03/18/2008 4:30 PM MERCHANDISE FLOW TEAM LEADER Height - - Body Mass Index 25.3 01/15/2008 9:30 AM CDT documented in this encounter Progress Notes Bebeto Vargas - 12/08/2009 11:13 PM CDT Good movement. Doing well. Complaints today: still has occasional contractions. fibronectin negative last week. Good growth on ultrasound. EFW: 3.5#. Will return to work 4 hours/shift with lifting restrictions (given). Discussed mode of delivery again and patient considering. RTC 2 weeks. MMJ HANDISE FLOW TEAM LEADER documented in this encounter Nursing Notes 03/18/2008 4:30 PM CST >> CARIDAD DAVIS [facility] Mar 18, 2008 5:16 PM B.P. 98/60 at 5:15 >> CARIDAD SUSAN [facility] Mar 18, 2008 4:53 PM Ariana Espinoza presents for P.N. Care Gestational Age: 30w 4d Initial BP 120/78 Wt 138 lb 4.8 oz (62.732 kg) LMP OB (05/23/08) Estimated Body mass index is 25.30 kg/(m^2) as calculated from: Height of 5' 2 (1.575 m) as of 01/15/08 Weight of 138 lb 4.8 oz (62.732 kg) as of this encounter. BP completed using cuff size: regular documented in this encounter Plan of Treatment Upcoming Encounters Date Type Specialty Care Team Description 12/06/2021 Appointment Radiology. Sadie France MD [address] [place], [place] [address] (Wo rk) 12/06/2021 Office Visit Maternal and Medicine Sa thais France MD [address] [place], [place] [address] (Wo rk) documented as of this encounter Visit Diagnoses Diagnosis Other threatened labor, antepartum High risk Unspecified high-risk Crohns disease Regional enteritis of unspecified site documented in this encounter Care Teams Geoscientist Relationship Specialty Start Date End Date Bebeto Vargas MD PCP - General 03/09/08 documented as of this encounter
--- OUTSIDE RECORDS SUMMARY | 2021-11-08 09:46 | XMS_ITS | Encounter Summary ---
:1980 Author Organization [place] Address [address] [place] [address] Care Team Providers Name Role Phone Unavailable Primary Care Provider Unavailable Reason for Visit Reason Onset Date Comments Patient Request for Note/Letter 03/01/2008 Encounter Details Date Type Department Care Team Description 03/01/2008 [facility] Bebeto Vargas Request for Women's Clinic MD Martha Note/Letter [place] [address] [place] [address] Social History Tobacco Use Types Packs/Day Years Used Date Never Smoker Alcohol Use Standard Drinks/Week Comments No 0 (1 standard drink = 0.6 oz pure alcoho l) Sex Assigned at Date Recorded Not on file documented as of this encounter Miscellaneous Notes Telephone Encounter - Essence Boateng - 03/04/2008 5:01 PM CST FAXED Kathia Boateng LPN OR INTERNET SALES CONSULTANT Telephone Encounter - Bebeto Vargas - 03/04/2008 4:32 PM CST Done in BV. Please send. OR INTERNET SALES CONSULTANT Telephone Encounter - Tocarlitossaima Lauren - 03/01/2008 9:29 AM CST Pt is 28 weeks and is home on modified bed rest. Pt is in need of note from MD carley SENA. Says she will not be returning to work until after 03/18 apt and needs note faxed to work. [phone] attn: Sharon. Lauren Lombardi RN OR INTERNET SALES CONSULTANT documented in this encounter Plan of Treatment Upcoming Encounters Date Type Specialty Care Team Description 12/06/2021 Appointment Radiology. Sadie France MD [address] [place], [place] [phone] (Wo rk) 12/06/2021 Office Visit Maternal and Medicine Sa thais France MD [address] [place], [place] [phone] (Wo rk) documented as of this encounter Visit Diagnoses Not on filedocumented in this encounter
--- OUTSIDE RECORDS SUMMARY | 2021-11-08 09:46 | XMS_ITS | Encounter Summary ---
:1980 Author Organization [place] Address [address] [place] [address] Care Team Providers Name Role Phone Bebeto Vargas MD Primary Care Provider Unavailable Reason for Visit Reason Comments Care Encounter Details Date Type Department Care Team Description 03/31/2008 Office [facility] Bebeto Vargas Risk (Primary Dx); Visit [facility] MD Martha Other Th[place] kei Labor, Antepartum; [place] Diarrhea; [address] Crohns Disease (H) [place] [address] [place] [phone] Social History Tobacco Use Types Packs/Day Years Used Date Never Smoker Alcohol Use Standard Drinks/Week Comments No 0 (1 standard drink = 0.6 oz pure alcoho l) Sex Assigned at Date Recorded Not on file documented as of this encounter Last Filed Vital Signs Vital Sign Reading Time Taken Comments Blood Pressure 120/58 03/31/2008 11:00 AM PEDIATRIC PHYSICIAN ASSISTANT Pulse - - Temperature - - Respiratory Rate - - Oxygen Saturation - - Inhaled Oxygen Concentration - - Weight 62.7 kg (138 lb 4.8 oz) 03/31/2008 11:00 AM PEDIATRIC PHYSICIAN ASSISTANT Height - - Body Mass Index 25.3 01/15/2008 9:30 AM CDT documented in this encounter Progress Notes Bebeto Vargas - 12/08/2009 11:13 PM CDT Good movement. Complaints today: 24 hours of loose stools, no cramping, bleeding. Has prescription for steroids to be taken in event of start of Crohns symptoms. patient has started meds. patientto call Gastroenterology tomorrow with symptoms and be evaluated if needed. Has decided to deliver at [facility]. Plan to transfer care prior to 35 weeks to facillitate care. fibronectin today. On limited hours at work. RTC 2 weeks. MMJ ATRIC PHYSICIAN ASSISTANT documented in this encounter Nursing Notes 03/31/2008 11:00 AM CST >> CARIDAD DAVIS SatMar 31, 2008 11:27 AM Ariana Espinoza presents for P.N. Care Gestational Age: 32w 3d Initial BP 120/58 Wt 138 lb 4.8 oz (62.732 kg) [...] [address] [place], [place] [address] (Wo rk) 12/06/2021 Office Visit Maternal and Medicine Sa thais France MD [address] [place], [place] [address] (Wo rk) documented as of this encounter Procedures Procedure Name Priority Date/Time Associated Diagnosis Comme nts HCL Routine 03/31/2008 12:20 PM Other Threatened Resu lts for this FIBRONECTIN, PEDIATRIC PHYSICIAN ASSISTANT Labor, Antepartu m procedure are in SEMI-QUANT High Risk the resu lts section. documented in this encounter Results FIBRONECTIN, SEMI-QUANT (03/31/2008 12:20 PM PEDIATRIC PHYSICIAN ASSISTANT) [facility] Method Time Signature Negative [facility] Fibronectin After 24 weeks gestation, a negative fibronectin is reported to be a RIDGES predictor of low term risk for labor in the next 14 days HOSPITAL LAB Specimen Anatomical Collection Method Collection Time Receive d Time (Source) Location / / Volume Laterality 03/31/2008 12:20 03/31/2008 PM PEDIATRIC PHYSICIAN ASSISTANT 12:25 PM PEDIATRIC PHYSICIAN ASSISTANT Bebeto Varags MD LABORATORY Performing Organization Address City/State/ZIP Code Phon e Number M [facility] [address] [place], [place] [address] [facility] documented in this encounter Visit Diagnoses Diagnosis High risk - Primary Unspecified high-risk Other threatened labor, antepartum Diarrhea Crohns disease Regional enteritis of unspecified site documented in this encounter Care Teams Modular Home Crew Member Relationship Specialty Start Date End Date Bebeto Vargas MD PCP - General 03/09/08 documented as of this encounter
--- OUTSIDE RECORDS SUMMARY | 2021-11-08 09:46 | XMS_ITS | Encounter Summary ---
:1980 Author Organization [place] Address [address] [place] [address] Care Team Providers Name Role Phone Bebeto Vargas MD Primary Care Provider Unavailable Reason for Visit Reason Comments Care Encounter Details Date Type Department Care Team Description 04/14/2008 Office [facility] Bebeto Vargas h Risk ; Visit Women[facility] Clinic MD Martha Crohns Diseas e (H); [place] Fourth Degree Perineal Lacer ation; [address] [place] Status Post Sma ll Bowel Resection [place] [address] [place] [address] Social History Tobacco Use Types Packs/Day Years Used Date Never Smoker Alcohol Use Standard Drinks/Week Comments No 0 (1 standard drink = 0.6 oz pure alcoho l) Sex Assigned at Date Recorded Not on file documented as of this encounter Last Filed Vital Signs Vital Sign Reading Time Taken Comments Blood Pressure 116/60 04/14/2008 3:45 PM DIVISION LEADER Pulse - - Temperature - - Respiratory Rate - - Oxygen Saturation - - Inhaled Oxygen Concentration - - Weight 64.4 kg (142 lb) 04/14/2008 3:45 PM DIVISION LEADER Height - - Body Mass Index 25.97 01/15/2008 9:30 AM CDT documented in this encounter Progress Notes Bebeto Vargas - 12/08/2009 11:13 PM CDT Good movement. Doing well. Complaints today: continues to contract. EFW: 5#15oz on Perinatologists ultrasound yesterday. Plans to return to [place] for duration of care. She may return here as needed as needed. RTC 1 with primary OB weeks. MMJ SION LEADER documented in this encounter Nursing Notes 04/14/2008 3:45 PM CST >> CARIDAD DAVIS Wed Apr 14, 2008 3:46 PM Ariana Espinoza presents for P.N. Care Gestational Age: 34w 3d Initial BP 116/60 Wt 142 lb (64.411 kg) LMP OB (05/23/08) Estimated Body mass index is 25.97 kg/(m^2) as calculated from: Height of 5' 2 (1.575 m) as of 01/15/08 Weight of 142 lb (64.411 kg) as of this encounter. BP completed using cuff size: regular documented in this encounter Plan of Treatment Upcoming Encounters Date Type Specialty Care Team Description 12/06/2021 Appointment Radiology. Sadie France MD [address] [place], [place] [phone] (Wo rk) 12/06/2021 Office Visit Maternal and Medicine Sa thais France MD [address] [place], [place] [phone] (Wo rk) documented as of this encounter Visit Diagnoses Diagnosis High risk Unspecified high-risk Crohns disease Regional enteritis of unspecified site Fourth degree perineal laceration Old laceration of muscles of pelvic floo r Status post small bowel resection Other postprocedural status documented in this encounter Care Teams Etl Application Developer Relationship Specialty Start Date End Date Bebeto Vargas MD PCP - General 03/09/08 documented as of this encounter
--- OUTSIDE RECORDS SUMMARY | 2021-11-08 09:46 | XMS_ITS | Encounter Summary ---
:1980 Author Organization [place] Address [facility] [place] [address] Care Team Providers Name Role Phone Bebeto Vargas MD Primary Care Provider Unavailable Reason for Visit Reason Onset Date Comments Formulary Issue 02/16/2008 Encounter Details Date Type Department Care Team Description 02/16/2008 Telephone [facility] Heri Vargas Form[facility] Issue Clinic Prosper Thomas MD [address] [place] [address] [place] [address] Social History Tobacco Use Types Packs/Day Years Used Date Never Smoker Alcohol Use Standard Drinks/Week Comments No 0 (1 standard drink = 0.6 oz pure alcoho l) Sex Assigned at Date Recorded Not on file documented as of this encounter Miscellaneous Notes Telephone Encounter - Lauren Lombardi - 02/16/2008 4:51 PM CST Fax received from [facility] and Ranitidine 150 mg is now covered throught the insurance. Requesting medication change. Pt is . Do you want to do PA or prescribe something else. Lauren Lombardi RN L TESTER documented in this encounter Plan of Treatment Upcoming Encounters Date Type Specialty Care Team Description 12/06/2021 Appointment Radiology. Sadie France MD [address] [place], [place] [address] (Wo rk) 12/06/2021 Office Visit Maternal and Medicine Sa thais France MD [address] [place] [address] (Wo rk) documented as of this encounter Visit Diagnoses Not on filedocumented in this encounter Care Teams Eight Arm Operator Relationship Specialty Start Date End Date Bebeto Vargas MD PCP - General 03/09/08 documented as of this encounter
--- OUTSIDE RECORDS SUMMARY | 2021-11-08 09:46 | XMS_ITS | Encounter Summary ---
:1980 Author Organization [place] Address [facility] [place] [address] Care Team Providers Name Role Phone Bebeto Vargas MD Primary Care Provider Unavailable Encounter Details Date Type Department Care Team Description 06/29/2010 Records - [facility] Kristina Reynoso [facility] [address] [place] [address] [facility], [facility] [address] [place] [phone] Social History Tobacco Use Types Packs/Day Years [...] [address] [place], [place] [address] (Wo rk) 12/06/2021 Office Visit Maternal and Medicine Sa thais France MD [address] [place], [place] [phone] (Wo rk) documented as of this encounter Procedures Procedure Name Priority Date/Time Associated Comments Diagnosis GYNECOLOGIC CYTOLOGY Routine 06/29/2010 11:01 Res ults for this AM CDT procedure are i n the results section. documented in this encounter Results Gynecologic Cytology (PAP Smear) (06/29/2010 11:01 AM CDT) Specimen Anatomical Collection Method Collection Time Receive d Time (Source) Location / / Volume Laterality 06/29/2010 11:01 06/29/2010 AM CDT 11:01 AM CDT Narrative [facility] - 06/29/2010 11:01 AM CDT [id number] ?Slide(s) 1 Specimen Type: ??SUREPATH SCREEN SOURCE: ENDOCERV CERVICAL PAP SMEAR INTERPRETATION: NEGATIVE FOR SQUAMOUS INTRAEPITHELIAL L ESION OR MALIGNANCY Based on Pap interpretation, HPV reflex test not performed. Endocervical Component Present Satisfactory for Interpretation PATIENT HISTORY Reflex HPV.................: Yes if ASC US High Risk..................: NO LMP/Menopause Date.........: 06/04/10 Abnormal Bleeding:.........: YES Pt Status..................: NOT APPLIC ABLE Control/Hormones.....: PILL/PATCH /RING Previous Normal/Date.......: 06/2008 Prev. Abn Date/Dx..........: Cervical Appearance........: S. Dhillon CT(ASCP) ? (elec tronically signed) Performed at: ??[facility] [address] [place] [address] Date Received: 06/29/10 ?Date Compl eted: 07/04/10 ??ABN Complete: Charlotte BAUMAN Performing Organization Address City/State/ZIP Code Phon e Number [place] [address] [address] [facility] documented in this encounter Visit Diagnoses Not on filedocumented in this encounter Care Teams Face Cleaner Relationship Specialty Start Date End Date Bebeto Vargas MD PCP - General 03/09/08 documented as of this encounter
--- OUTSIDE RECORDS SUMMARY | 2021-11-08 09:46 | XMS_ITS | Encounter Summary ---
:1980 Author Organization [place] Address [facility] [place] [address] Care Team Providers Name Role Phone Bebeto Vargas MD Primary Care Provider Unavailable Encounter Details Date Type Department Care Team Description 06/27/2010 Records - [facility] Kristina Reynoso K [address] [facility] [address] [place], [place] [address] [address] [place], [place] [phone] (Work) [phone] Social History Tobacco Use Types Packs/Day Years [...] [address] [place], [place] [address] (Wo rk) 12/06/2021 Office Visit Maternal and Medicine Sa thais France MD [address] [place], [place] [address] (Wo rk) documented as of this encounter Procedures Procedure Name Priority Date/Time Associated Diagnosis Comme nts LIPID PROFILE Routine 06/27/2010 9:19 AM Results for this CDT procedure are i n the results section . documented in this encounter Results (ABNORMAL) Lipid Profile (06/27/2010 9:19 AM CDT) [facility] Method Time Signature Triglycerides 157 (H) <150 06/27/2010 HEALTH mg/dL 9:19 AM CDT [facility] LDL Cholesterol 92 <130 06/27/2010 HEALTH Calculated mg/dL 9:19 AM CDT [facility] Direct Measure 63 >39 mg/dL 06/27/2010 HEALTH HDL 9:19 AM CDT [facility] Cholesterol 186 <200 06/27/2010 HEALTH mg/dL 9:19 AM CDT [facility] Specimen Anatomical Collection Method Collection Time Receive d Time (Source) Location / / Volume Laterality 06/27/2010 9:19 AM 1 9:19 CDT AM CDT Charlotte Reynoso LAB - BLOOD ORDERABLES Performing Organization Address City/State/ZIP Code Phon e [place] [address] [address] [facility] documented in this encounter Visit Diagnoses Not on filedocumented in this encounter Care Teams Pharmacist Technician Relationship Specialty Start Date End Date Bebeto Vargas MD PCP - General 03/09/08 documented as of this encounter
--- OUTSIDE RECORDS SUMMARY | 2021-11-08 09:46 | XMS_ITS | Encounter Summary ---
:1980 Author Organization [place] Address [address] [place] [address] Care Team Providers Name Role Phone Unavailable Primary Care Provider Unavailable Reason for Visit Reason Comments Care Encounter Details Date Type Department Care Team Description 02/25/[address] [facility] Bebeto Vargas Risk (Primary Dx); Visit Women[facility] Clinic MD Virginia Thomas e (H); [place] Status Post Small Bowel Rese ction; [address] Fourth Degree P erineal Laceration; [place] Other Threatened Labor, [address] [place] [address] Social History Tobacco Use Types Packs/Day Years Used Date Never Smoker Alcohol Use Standard Drinks/Week Comments No 0 (1 standard drink = 0.6 oz pure alcoho l) Sex Assigned at Date Recorded Not on file documented as of this encounter Last Filed Vital Signs Vital Sign Reading Time Taken Comments Blood Pressure 108/64 02/25/2008 3:15 PM VASCULAR RADIOLOGIST Pulse - - Temperature - - Respiratory Rate - - Oxygen Saturation - - Inhaled Oxygen Concentration - - Weight 61.1 kg (134 lb 11.2 oz) 02/25/2008 3:15 PM VASCULAR RADIOLOGIST Height - - Body Mass Index 24.64 01/15/2008 9:30 AM CDT documented in this encounter Progress Notes Bebeto Vargas - 12/08/2009 11:13 PM CDT Good movement. Doing well. Complaints today: baseline contractions unchanged on modified bedrest. Has growth ultrasound scheduled. Will reassess work restrictions at 30 weeks. 3 hour GTT normal. RTC 2 weeks. MMJ. ULAR RADIOLOGIST documented in this encounter Nursing Notes 02/25/2008 3:15 PM CST >> CARIDAD DAVIS Wed Feb 25, 2008 3:27 PM Ariana Espinoza presents for P.N. Care Gestational Age: 27w 3d Initial BP 108/64 Wt 134 lb 11.2 oz (61.1 kg) LMP OB (05/23/08) Estimated Body mass index is 24.64 kg/(m^2) as calculated from: Height of 5' 2 (1.575 m) as of 01/15/08 Weight of 134 lb 11.2 oz (61.1 kg) as of this encounter. BP completed using cuff size: regular documented in this encounter Plan of Treatment Upcoming Encounters Date Type Specialty Care Team Description 12/06/2021 Appointment Radiology. Sadie France MD [address] [place], [place] [phone] (Wo rk) 12/06/2021 Office Visit Maternal and Medicine Sa thais France MD [address] [place], [place] [phone] (Wo rk) documented as of this encounter Visit Diagnoses Diagnosis High risk - Primary Unspecified high-risk Crohns disease Regional enteritis of unspecified site Status post small bowel resection Other postprocedural status Fourth degree perineal laceration Old laceration of muscles of pelvic floo r Other threatened labor, antepartum documented in this encounter
--- OUTSIDE RECORDS SUMMARY | 2021-11-08 09:47 | XMS_ITS | Encounter Summary ---
:1980 Author Organization [place] Address [address] [place] [address] Care Team Providers Name Role Phone Unavailable Primary Care Provider Unavailable Reason for Visit Reason Comments Care Encounter Details Date Type Department Care Team Description 02/02/2008 Office Visit [facility] Brian Hill High Risk ; [facility] MD Virginia Mcdonald e () [place] [address] [place] [phone] Social History Tobacco Use Types Packs/Day Years Used Date Never Smoker Alcohol Use Standard Drinks/Week Comments No 0 (1 standard drink = 0.6 oz pure alcoho l) Sex Assigned at Date Recorded Not on file documented as of this encounter Last Filed Vital Signs Vital Sign Reading Time Taken Comments Blood Pressure 102/64 02/02/2008 11:15 AM REVIEW NURSE Pulse - - Temperature - - Respiratory Rate - - Oxygen Saturation - - Inhaled Oxygen Concentration - - Weight 59.6 kg (131 lb 8 oz) 02/02/2008 11:15 AM REVIEW NURSE Height - - Body Mass Index 24.05 01/15/2008 9:30 AM CDT documented in this encounter Progress Notes Magdalena Bauman - 02/13/2008 4:05 PM REVIEW NURSE Addended by: MAGDALENA BAUMAN on: 02/13/2008 4:05:12 PM Modules accepted: Orders EW NURSE Brian Hill - 02/02/2008 2:33 PM CST Ariana Espinoza ,27 year old, , previous rupture of menbrames at 36 weeks and subsequentdelivery at 37 weeks presents with contractions. Followed by family practice in [place], please see Dr. Cooper's note. Seen by Dr. Elder at . 10 contractions per hour when ambulating. Exam: fibronectin done. Cervix closed, long , firm. Imp: contractions. Plan: Recommended modified bed rest until 30 weeks. Pt. Declines. Will modify work activity. EW NURSE documented in this encounter Nursing Notes 02/02/2008 11:15 AM CST >> MAGDALENA BAUMAN Mon Feb 02, 2008 11:19 AM Pn care.Gestational Age: 24w 1d Pt here to discuss going back to work. Magdalena Bauman MA documented in this encounter Plan of Treatment Upcoming Encounters Date Type Specialty Care Team Description 12/06/2021 Appointment Radiology. Sadie France MD [address] [place], [place] [address] (Wo rk) 12/06/2021 Office Visit Maternal and Medicine Sa thais France MD [address] [place], [place] [address] (Wo rk) documented as of this encounter Procedures Procedure Name Priority Date/Time Associated Diagnosis Comme nts HCL Routine 02/02/2008 11:43 AM High Risk Pr egnancy Results for this FIBRONECTIN, REVIEW NURSE Crohns Disease (H) procedure are in SEMI-QUANT the results section. documented in this encounter Results FIBRONECTIN, SEMI-QUANT (02/02/2008 11:43 AM REVIEW NURSE) [facility] Method Time Signature Negative [place] Fibronectin After 24 weeks gestation, a negative fibronectin is reported to be a RIDGES predictor of low term risk for labor in the next 14 days HOSPITAL LAB Specimen Anatomical Collection Method Collection Time Receive d Time (Source) Location / / Volume Laterality 02/02/2008 11:43 02/02/2008 AM REVIEW NURSE 11:48 AM REVIEW NURSE Brian Hill MD LABORATORY Performing Organization Address City/State/ZIP Code Phon e Number M [facility] [address] [place] [address] [facility] documented in this encounter Visit Diagnoses Diagnosis High risk Unspecified high-risk Crohns disease Regional enteritis of unspecified site documented in this encounter
--- OUTSIDE RECORDS SUMMARY | 2021-11-08 09:47 | XMS_ITS | Encounter Summary ---
:1980 Author Organization [place] Address [facility] [place] [address] Care Team Providers Name Role Phone Unavailable Primary Care Provider Unavailable Encounter Details Date Type Department Care Team Description 02/14/2008 Orders Only [facility] Bebeto Vargas CTING RESULTS Women's Clinic MD Martha (Primary Dx) [place] [address] [place] [address] Social History Tobacco Use Types [...] [address] [place], [place] [phone] (Wo rk) 12/06/2021 Office Visit Maternal and Medicine Sa thais France MD [address] [place] [address] (Wo rk) documented as of this encounter Procedures Procedure Name Priority Date/Time Associated Diagnosis Comme nts US OB TRANSVAGINAL Routine 01/14/2008 ABSTRACTING RESULTS documented in this encounter Results US, UTERUS, REAL TIME W/IMAGE DOCUMENT, TRANSVAGINAL (01/14/2008) Anatomical Region Laterality Modality Other Specimen (Source) Anatomical Location Collection Method / Collectio n Time Received Time / Laterality Volume 01/14/2008 Narrative This result has an attachment that is no t available. Bebeto Vargas MD SPECIAL IMAGING STUDIES documented in this encounter Visit Diagnoses Diagnosis ABSTRACTING RESULTS - Primary documented in this encounter
--- OUTSIDE RECORDS SUMMARY | 2021-11-08 09:47 | XMS_ITS | Encounter Summary ---
:1980 Author Organization [place] Address [address] [place] [address]. [place] [address] Care Team Providers Name Role Phone Unavailable Primary Care Provider Unavailable Reason for Visit Reason Onset Date Comments Care 02/04/2008 Encounter Details Date Type Department Care Team Description 02/04/2008 Telephone [facility] Women's Chris Vargas, [facility] [place] [address] [place] [address] Social History Tobacco Use Types Packs/Day Years Used Date Never Smoker Alcohol Use Standard Drinks/Week Comments No 0 (1 standard drink = 0.6 oz pure alcoho l) Sex Assigned at Date Recorded Not on file documented as of this encounter Miscellaneous Notes Telephone Encounter - Lauren Lombardi - 02/04/2008 9:[address] Montejo, pt to rest and hydrate for the next 2 hours and call after 2 hours if contractions have not decreased. Lauren Lombardi RN BOAT CAPTAIN Telephone Encounter - Lauren Lombardi - 02/04/2008 9:10 AM CST Pt is 25 weeks and was having contractions every 5 min. from 7-8:30 this morning and from 10:00-11:30 last night . Pt states she is on modified bed rest per Dr. Hill. Pt had negative FFN 02/02/08. Pt states she has not had any contractions for the last 10 min while on phone with office. She is wanting to know if she should be seen. Please advise if you want to see pt, send to L&D or is you would like to take some other action of care with pt. Dr. Cooper out of office. Message sent to network operations center technician. Lauren Lombradi RN BOAT CAPTAIN documented in this encounter Plan of Treatment Upcoming Encounters Date Type Specialty Care Team Description 12/06/2021 Appointment Radiology. Sadie France MD [address] [place] [address] (Wo rk) 12/06/2021 Office Visit Maternal and Medicine Sa thais France MD [address] [place] [address] (Wo rk) documented as of this encounter Visit Diagnoses Not on filedocumented in this encounter
--- OUTSIDE RECORDS SUMMARY | 2021-11-08 09:47 | XMS_ITS | Encounter Summary ---
:1980 Author Organization [place] Address [facility] [place] [address] Care Team Providers Name Role Phone Unavailable Primary Care Provider Unavailable Encounter Details Date Type Department Care Team Description 01/11/2008 Results Only [facility] Bebeto Vargas, [facility] Results Social History Tobacco Use Types Packs/Day Years Used Date Never Assessed Sex Assigned at Date Recorded Not on file documented as of this encounter Plan of Treatment Upcoming Encounters Date Type Specialty Care Team Description 12/06/2021 Appointment Radiology. Sadie France MD [address] [place], [place] [phone] (Wo rk) 12/06/2021 Office Visit Maternal and Medicine Sa thais France MD [address] [place], [place] [phone] (Wo rk) documented as of this encounter Procedures Procedure Name Priority Date/Time Associated Diagnosis Comme nts HC US OB LIMITED, 1 Routine 01/11/2008 6:15 PM Re sults for this OR MORE FETUSES CDT procedure ar e in the results section. documented in this encounter Results [employer] (01/11/2008 6:15 PM CDT) Specimen (Source) Anatomical Collection Method Collection Time Re ceived Time Location / / Volume Laterality 01/11/2008 6:15 PM CDT Impressions RADIOLOGY RESULTS - 01/11/2008 7:01 PM C DT EXAM: ??US OB LIMITED -1 HISTORY: ??Check cervical length. ? FINDINGS: There is a single living IUP. ??Cephalic ?? presentation. ? Placenta is anterior without ??previa. Amniotic fluid volume is normal. heart beat is 147 beats per minute . Cervical length: ??3.5 cm. IMPRESSION: ??Single living intrauterine in cephalic presentation. Cervical length 3.5 cm. Bebeto Vargas MD SPECIAL IMAGING STUDIES Performing Organization Address City/State/ZIP Code Phon e Number RADIOLOGY RESULTS documented in this encounter Visit Diagnoses Not on filedocumented in this encounter
--- OUTSIDE RECORDS SUMMARY | 2021-11-08 09:47 | XMS_ITS | Encounter Summary ---
:1980 Author Organization [place] Address [address] [place] [address] Care Team Providers Name Role Phone Unavailable Primary Care Provider Unavailable Reason for Referral - Closed Specialty Diagnoses / Procedures Referred By Contact Refer red To Contact Diagnoses Crohns disease Status post small bowel resection High risk Bebeto Vargas MD [facility] [address] [place] [address] Referral ID Status Reason Start Date Expiration Date Visits Requ ested Visits Authorized [id number] Closed 01/15/2008 03/31/2011 1 1 Reason for Visit Reason Comments Care Encounter Details Date Type Department Care Team Description 01/15/2008 Office Visit [facility] Bebeto Vargas R isk (Primary Dx); Women's Clinic MD Martha Crohns Diseas e (H); [place] Status Post Small Bowel Rese ction; [address] DIAGNOSIS NOT Y ET DEFINED [place] [address] [place] [phone] Social History Tobacco Use Types Packs/Day Years Used Date Never Smoker Alcohol Use Standard Drinks/Week Comments No 0 (1 standard drink = 0.6 oz pure alcoho l) Sex Assigned at Date Recorded Not on file documented as of this encounter Last Filed Vital Signs Vital Sign Reading Time Taken Comments Blood Pressure 98/68 01/15/2008 9:30 AM CDT Pulse - - Temperature - - Respiratory Rate - - Oxygen Saturation - - Inhaled Oxygen Concentration - - Weight 57.5 kg (126 lb 12.8 oz) 01/15/2008 9:30 AM CDT Height 157.5 cm (5' 2) 01/15/2008 9:30 AM CDT Body Mass Index 23.19 01/15/2008 9:30 AM CDT documented in this encounter Progress Notes Bebeto Vargas - 01/15/2008 7:47 PM CDT S: Ariana Espinoza is a 27 year old at Gestational Age: 21w 4d , with history of Crohn's Disease, who presents to establish obstetric care. She has had excellent pre-domonique care to date in [place]. She desires to establish care near her employment secondary to complications of her . She plans to deliver in [place]. She had onset of contractions 01/11/08 every 2-3 minutes while at work. This was associated with pelvic pressure. No vaginal bleeding, loss of fluid. Cervical length ultrasound was 3.5 cm. contractionsresolved with rest, hydration. urinalysis was negative. She was discharged to home and followed up for comprensive ultrasound 01/14/08 that revealed cervical length 3.9 cm. Still having occasional contractions. Ariana has history of Crohn's disease diagnosed incidentally in 2002 at time of appendectomy. Had appendectomy and ileocecal resection. Currently on Pentasa. She did have onset of Crohn's symptoms on01/11, cramping on left, liquid stools. No bloody stools. Resolving. Did have flare first trimester.Treated with steroids. Had successful 2006 complicated by 4th degree laceration. I have reviewed the patient's Past Medical History, Past Surgical History, Social History, Family History, Problem List and Medication List. I have updated the patient's Past Medical History, Past Surgical History, Social History and ProblemList. O: BP 98/68 Ht 5' 2 (1.575 m) Wt 126 lb 12.8 oz (57.516 kg) LMP OB (05/23/08) Gen: Alert and oriented, no apparent distress GI: right lower quadrant scar. Gravid. non-tender. FH consistent with Gestational Age: 21w 4d EFM: 150 A/P: V23.9B High Risk (primary encounter diagnosis) Comment: recent contractions uncertain etiology. Concern for possible pelvic pathology related to Crohn's Disease Plan: CONSULT NL SERVICES return to clinic 2 weeks Plan to follow patient until 34-36 weeks Plan delivery at [place] 555.9D Crohns Disease Comment: on Pentasa. Plan: PENTASA 500 MG OR CPCR, CONSULT SERVICES Discussed natural history of Crohn's in . Concern regarding early flare. Will need to follow carefully. Discussed mode of delivery given Crohn's and history of fourth degree laceration. Presented option of section, which patient does not desire. Will continue to discuss V45.89RW Status Post Small Bowel Resection Comment: with history of perforation Plan: VITAMIN B-12 1000 MCG OR TABS, CONSULT SERVICES Discussed implication if operative delivery ( section) required. 20 minutes spent with patient, > 50% in direct face to face counseling regarding the above documented in this encounter Nursing Notes 01/15/2008 9:30 AM CDT >> CARIDAD DAVIS [facility] Jan 15, 2008 9:49 AM Ariana [facility]ley [facility] Initial BP 98/68 Ht 5' 2 (1.575 m) Wt 126 lb 12.8 oz (57.516 kg) LMP OB (05/23/08) Body mass index is 23.19 kg/(m^2).. BP completed using cuff size: regular documented in this encounter Plan of Treatment Upcoming Encounters Date Type Specialty Care Team Description 12/06/2021 Appointment Radiology. Sadie France MD [address] [place], [place] [phone] (Wo rk) 12/06/2021 Office Visit Maternal and Medicine Sa thais France MD [address] [place], [place] [phone] (Wo rk) documented as of this encounter Procedures Procedure Name Priority Date/Time Associated Diagnosis Comme nts PERINATOLOGY REFERRAL Routine 01/15/2008 Crohns Dis ease (H) Status Post Smal l Bowel Resection High Risk documented in this encounter Results CONSULT SERVICES (01/15/2008) Narrative This result has an attachment that is no t available. Bebeto Vargas MD REFERRAL documented in this encounter Visit Diagnoses Diagnosis High risk - Primary Unspecified high-risk Crohns disease Regional enteritis of unspecified site Status post small bowel resection Other postprocedural status DIAGNOSIS NOT YET DEFINED documented in this encounter
--- OUTSIDE RECORDS SUMMARY | 2021-11-08 09:47 | XMS_ITS | Encounter Summary ---
:1980 Author Organization [place] Address [facility] [place] [address] Care Team Providers Name Role Phone Bebeto Vargas MD Primary Care Provider Unavailable Encounter Details Date Type Department Care Team Description 01/11/2008 Historic Results INTERFACED REPORT Interface, Moy dasilva MD Social History Tobacco Use Types Packs/Day Years Used Date Never Assessed Sex Assigned at Date Recorded Not on file documented as of this encounter Plan of Treatment Upcoming Encounters Date Type Specialty Care Team Description 12/06/2021 Appointment Radiology. Sadie France MD [address] [place], [place] [phone] (Wo rk) 12/06/2021 Office Visit Maternal and Medicine Sa thais France MD [address] [place], [place] [phone] (Wo rk) documented as of this encounter Procedures Procedure Name Priority Date/Time Associated Comments Diagnosis ROUTINE UA WITH Routine 01/11/2008 5:45 PM Result s for this MICROSCOPIC CDT procedure are i n the results section. URINE CULTURE Routine 01/11/2008 5:45 PM Results for this CDT procedure are i n the results section. documented in this encounter Results (ABNORMAL) Routine UA with microscopic (01/11/2008 5:45 PM CDT) Component Value Ref Test Analysis Performed At [facility] Method Time Signature Source Catheterized MISYS Urine Color Urine Straw MISYS Appearance Urine Clear MISYS Glucose Urine Negative NEG MISYS mg/dL Bilirubin Urine Negative NEG MISYS Ketones Urine Negative NEG MISYS mg/dL Specific [place] 1.002 (L) 1.003 - MISYS Urine 1.035 Blood Urine Negative NEG MISYS pH Urine 6.0 5.0 - MISYS 7.0 pH Protein Albumin Negative NEG MIS[facility] Urine mg/dL Urobilinogen Normal 0.0 - MISYS mg/dL 2.0 mg/dL Nitrite Urine Negative NEG MISYS Leukocyte Negative NEG MIS[facility] Esterase Urine WBC Urine <1 0 - 2 MISYS /HPF RBC Urine 1 0 - 2 MISYS /HPF Squamous 2 (H) 0 - 1 MIS[facility] Epithelial /HPF /HPF Urine Transitional Epi <1 0 - 1 MISYS /HPF Specimen Anatomical Collection Method Collection Time Receive d Time (Source) Location / / Volume Laterality 01/11/2008 5:45 PM 8 5:33 CDT PM CDT Transcripton Interface LAB - URINE ORDERABLES Performing Organization Address City/State/ZIP Code Phon e Number MISYS Urine culture (01/11/2008 5:45 PM CDT) Component Value Ref Test Analysis Performed At [facility] Method Time Signature Specimen Catheterized MISYS Description Urine Culture Micro No growth [facility] Micro Report FINAL 01/13/2008 [facility] Status Specimen Anatomical Collection Method Collection Time Receive d Time (Source) Location / / Volume Laterality 01/11/2008 5:45 PM 8 5:33 CDT PM CDT Transcripton Interface LAB - MICRO GENERAL ORDERABL ES Performing Organization Address City/State/ZIP Code Phon e Number MISYS documented in this encounter Visit Diagnoses Not on filedocumented in this encounter Care Teams Engineer [employer] Ex[employer]er Relationship Specialty Start Date End Date Bebeto Vargas MD PCP - General 03/09/08 documented as of this encounter
--- OUTSIDE RECORDS SUMMARY | 2021-11-08 09:47 | XMS_ITS | Encounter Summary ---
:1980 Author Organization [place] Address [address] [place] [id number] Care Team Providers Name Role Phone Unavailable Primary Care Provider Unavailable Reason for Visit Reason Onset Date Comments Patient Request 01/27/2008 appointment Encounter Details Date Type Department Care Team Description 01/27/2008 Telephone [facility] Bebeto Vargas Request [facility] MD Martha (appointment) [place] [address] [place] [id number] Social History Tobacco Use Types Packs/Day Years Used Date Never Smoker Alcohol Use Standard Drinks/Week Comments No 0 (1 standard drink = 0.6 oz pure alcoho l) Sex Assigned at Date Recorded Not on file documented as of this encounter Miscellaneous Notes Telephone Encounter - Marilin Rockwell - 01/28/2008 1:41 PM CDT Pt advised. Appt scheduled for 02/02/[address] Hill. Brandi Rockwell, RN Telephone Encounter - Bebeto Vargas - 01/28/2008 1:02 PM CDT I will be out of town after her appointment on 01/29 returning to clinic 02/09. I'm sure one of my partners will be happy to see her in my absence. Please call patient to let her know. Telephone Encounter - Rina Simmons - 01/27/2008 2:50 PM CDT Pt called stating that Dr Cooper had wanted pt to come in to see her after she had her appointment with maternal/ medicine. She is 24 weeks and is currently on bedrest. Pts appt is on Monday 01/29, but the soonest that pt can see Dr Cooper is 02/11. She was hoping to be seen sooner than that, as this would determine if she could come off of bedrest. She is open to seeing another doctor if Dr Cooper is ok with that. Pt would like to be updated. Please advise. documented in this encounter Plan of Treatment Upcoming Encounters Date Type Specialty Care Team Description 12/06/2021 Appointment Radiology. Sadie France MD [address] [place], [place] [phone] (Wo stephanie) 12/06/2021 Office Visit Maternal and Medicine Sa thais France MD [address] [place], [place] [phone] (Wo stephanie) documented as of this encounter Visit Diagnoses Not on filedocumented in this encounter
--- OUTSIDE RECORDS SUMMARY | 2021-11-08 09:47 | XMS_ITS | Encounter Summary ---
:1980 Author Organization [place] Address [address] [place] [address]. [place] [address] Care Team Providers Name Role Phone Unavailable Primary Care Provider Unavailable Reason for Visit Reason Comments Care Encounter Details Date Type Department Care Team Description 02/12/2008 Office [facility] Bebeto Vargas Risk (Primary Dx); Visit [facility] MD Mirtha Thomas; [place] Crohns Disease (H); [address] Fourth Degree P erineal Laceration; [place] Status Post Small Bowel Rese ction [address] [place] [address] Social History Tobacco Use Types Packs/Day Years Used Date Never Smoker Alcohol Use Standard Drinks/Week Comments No 0 (1 standard drink = 0.6 oz pure alcoho l) Sex Assigned at Date Recorded Not on file documented as of this encounter Last Filed Vital Signs Vital Sign Reading Time Taken Comments Blood Pressure 118/68 02/12/2008 3:00 PM [employer] Pulse - - Temperature - - Respiratory Rate - - Oxygen Saturation - - Inhaled Oxygen Concentration - - Weight 60.2 kg (132 lb 12.8 oz) 02/12/2008 3:00 PM [employer] Height - - Body Mass Index 24.29 01/15/2008 9:30 AM CDT documented in this encounter Progress Notes Bebeto Vargas - 12/08/2009 11:13 PM CDT Good movement. Doing well. Complaints today: Heartburn. Taking Tums. No relief. Had consult with M regarding Crohn's Disease, history of 4th degree laceration, contractions. Continues to have contractions without cervical change. fibronectin negative last week. Most recent MFM opinion on bedrest favors that approach until 30 weeks with reassessment after that. Will recommend at this time. Will revisit delivery method at that time as well. Complicated given history of laparotomyand small bowel resection secondary to Crohn's along with history of 4th degree. MFM favors vaginal delivery. Plan: modified bedrest GCT today. Repeat growth ultrasound tomorrow with MFM follow-up Gastroenterology Raffi scheduled RTC 2 weeks. MMJ [employer] documented in this encounter Nursing Notes 02/12/2008 3:00 PM CST >> KRISTI Brewer Feb 12, 2008 3:21 PM .Patient presents with: Care Intial BP 118/68 Wt 132 lb 12.8 oz (60.238 kg) LMP OB (05/23/08) Estimated Body mass index is 24.29 kg/(m^2) as calculated from: Height of 5' 2 (1.575 m) as of 01/15/08 Weight of 132 lb 12.8 oz (60.238 kg) as of this encounter BP completed using cuff size: regular. Kristi Baltazar MA Gestational Age: 25w 4d documented in this encounter Plan of Treatment Upcoming Encounters Date Type Specialty Care Team Description 12/06/2021 Appointment Radiology. Sadie France MD [address] [place], [place] [phone] (Wo stephanie) 12/06/2021 Office Visit Maternal and Medicine Sa thais France MD [address] [place], [place] [phone] (Wo stephanie) documented as of this encounter Procedures Procedure Name Priority Date/Time Associated Comments Diagnosis HCL OB HEMOGLOBIN Routine 02/12/2008 5:04 PM High Risk Pregnan cy Results for this [employer] procedure are i n the results section. HCL GLUCOSE; 1 HR Routine 02/12/2008 5:04 PM High Risk Pregnan cy Results for this POST [employer] procedure are i n the results section. documented in this encounter Results OB HEMOGLOBIN (02/12/2008 5:04 PM [employer]) athologist Signature Hemoglobin 12.3 11.7 - 15.[address] [facility] g/dL CLINIC LAB Specimen Anatomical Collection Method Collection Time Receive d Time (Source) Location / / Volume Laterality 02/12/2008 5:04 PM 8 5:10 [employer] PM [employer] Bebeto Vargas MD LABORATORY Performing Organization Address City/[facility]/ZIP Code Phon e Number [facility] [address] [place], [place] [address] [address] [facility] LAB (ABNORMAL) GLUCOSE; 1 HR POST (02/12/2008 5:04 PM [employer]) athologist Signature Glu Gest 151 (H) 60 - 140 [place] Screen 1hr 50g mg/dL [facility] Specimen Anatomical Collection Method Collection Time Receive d Time (Source) Location / / Volume Laterality 02/12/2008 5:04 PM 8 5:10 [employer] PM [employer] Bebeto Vargas MD LABORATORY Performing Organization Address City/[facility]/ZIP Code Phon e Number [facility] [address] [place], [place] [address] [address] [facility] documented in this encounter Visit Diagnoses Diagnosis High risk - Primary Unspecified high-risk Heartburn Crohns disease Regional enteritis of unspecified site Fourth degree perineal laceration Old laceration of muscles of pelvic floo r Status post small bowel resection Other postprocedural status documented in this encounter
[2021-11-08 12:17] LABS: Aspartate Amino Transferase* 18 U/L (12-35)
[2021-11-08 12:18] LABS: Alanine Aminotransferase* 9 U/L (4-35); Uric Acid* 4.4 mg/dL (2.2-8.4)
[2021-11-08 12:46] LABS: Total Protein Urine 8 mg/dL
[2021-11-08 12:49] LABS: Creatinine Urine 173.6 mg/dL
[2021-11-09 14:21] LABS: Blood Urea Nitrogen* 7 mg/dL (5-24); Creatinine* 0.6 mg/dL (0.5-1.5); Estimated Glomerular Filt Rate 117 ml/min
== END 2021-11-08 09:42 | disposition home or self-care (01) ==
PROVIDERS: Visit Provider Advanced Practice Midwife
DX: Z34.90 Encounter for supervision of normal pregnancy, unspecified, unspecified trimester (principal)
CPT/HCPCS: 82565; 82570; 84156; 84450; 84460; 84520; 84550